=== PATIENT | female | born 1955 | race African-American/Black ===

== ENCOUNTER 2017-08-06 10:16 | Emergency (ER) | payer BC ==
[2017-08-06 10:32] VITALS: TEMP 98.2; BMI 24.1
--- NOTE | 2017-08-06 11:03 | PDOC ---
Attending Attestation - Resident Resident Name: Jacob Wright - ED Attending Attestation I have performed the following: I have examined & evaluated the patient, The case was reviewed & discussed with the resident, I agree w/resident's findings & plan, Exceptions are as noted - Medical Decision Making 08/06/17 11:03 I, Dr. Marge Casillas, DO, attest that this document has been prepared under my direction and personally reviewed by me in its entirety. I further attest, that it accurately reflects all work, treatment, procedures and medical decision -making performed by me. 08/06/17 11:13 a/p: 61yo female with sob w exertion and speaking -suspect more likely vocal cord dysfunction/tracheal stenosis worsening by dry heat and weather changes -will check labs, cxr -no wheezing -no stridor -will discuss with Dr. Johnson -will give humidified O2 <Marge Casillas - Last Filed: 08/06/17 11:13> - HPI HPI: 08/06/17 13:43 Pt is a 61 yo F with a PMHx of Hypothyroidism (s/p total thyroidectomy), Asthma , Tracheal stenosis who presents to the ED with worsening SOB since last night. Patient has tried multiple anson and turmeric teas with no relief. Patient reports she is unable to breath and is increasingly anxious due to this. Patient states SOB is worse at night and during the winter seasons. Patient also notes SOB is worse with conversation and exertion. Patient reports unexplained weight loss and hair loss over the past 3 months and presents to the ED for further evaluation. PCP: Dr. Roberto Carlos Cobos: Elizabeth - Physicial Exam PE: 08/06/17 13:43 GENERAL: Awake, alert, and fully oriented, in no acute distress HEAD: No signs of trauma. EYES: PERRLA, EOMI, sclera anicteric, conjunctiva clear ENT: Auricles normal inspection, hearing grossly normal, nares patent, oropharynx clear without exudates. Moist mucosa. NECK: +Transmitted upper airway sounds. No stridor. Normal ROM, supple, no lymphadenopathy, JVD, or masses LUNGS: Breath sounds equal, clear to auscultation bilaterally. No wheezes, and no crackles HEART: Regular rate and rhythm, normal S1 and S2, no murmurs, rubs or gallops ABDOMEN: Soft, nontender, normoactive bowel sounds. No guarding, no rebound. No masses EXTREMITIES: Normal range of motion, no edema. No clubbing or cyanosis. No cords, erythema, or tenderness NEUROLOGICAL: Cranial nerves II through XII grossly intact. Normal speech, normal gait SKIN: Warm, Dry, normal turgor, no rashes or lesions noted. - Medical Decision Making 08/06/17 13:43 Documentation prepared by Luma Gonzalez, acting as emergency medicine medical director for Marge Casillas DO <Luma Gonzalez - Last Filed: 08/06/17 13:43>
--- NOTE | 2017-08-06 11:04 | PDOC ---
History of Present Illness - General Chief Complaint: Shortness of Breath Stated Complaint: DIFFICULTY BREATHING Time Seen by Provider: 08/06/17 10:28 History Source: Patient Exam Limitations: No Limitations - History of Present Illness Initial Comments: 08/06/17 11:01 The patient is a 61F with a PMH of hypothyroidism (s/p total thyroidectomy at age 19, on levothyroxine) and newly diagnosed asthma who presents to the ED with difficulty breathing. The patient states that every year around this season she develops the same symptoms which include tightness in her throat and a feeling of difficulty breathing, associated with a frontal headache and sinus congestion when she sleeps. She states that she has traveled around the world looking for answers and "no one can figure out what she has". She states that she has had vocal cord scarring 2/2 to her surgery but sees an ENT for this. She has no other complaints. Past History - Past Medical History Allergies/Adverse Reactions: Allergies Allergy/AdvReac Type Severity Reaction Status Date / Time codeine Allergy Difficulty Verified 06/21/17 16:30 Breathing Penicillins Allergy Verified 06/21/17 16:30 Home Medications: Ambulatory Orders Cholecalciferol (Vitamin D3) [Vitamin D] 5,000 unit PO WEEKLY 04/25/13 Tobramycin 0.3% Ophth Soln [Tobrex Ophthalmic Solution -] 1 drop OD TID #0 bottle 09/11/13 Levothyroxine Sodium [Synthroid] 125 mcg PO DAILY tablet 12/15/14 Anemia: No Asthma: Yes Cancer: Yes (THYROID) Cardiac Disorders: No COPD: No GI Disorders: Yes (REFLUX) Hypercholesterolemia: Yes Thyroid Disease: Yes (HYPO) - Surgical History Abdominal Surgery: No Appendectomy: No Cardiac Surgery: No - Suicide/Smoking/Psychosocial Hx Smoking Status: No Smoking History: Never smoked Number of Cigarettes Smoked Daily: 0 Hx Alcohol Use: No Drug/Substance Use Hx: No Review of Systems - Review of Systems Able to Perform ROS?: Yes Comments:: 08/06/17 11:09 GENERAL/CONSTITUTIONAL: No fever or chills. No weakness. HEAD, EYES, EARS, NOSE AND THROAT: No change in vision. No ear pain or discharge. No sore throat. GASTROINTESTINAL: No nausea, vomiting, diarrhea, constipation, or abdominal pain. GENITOURINARY: No dysuria, frequency, hematuria, or change in urination. CARDIOVASCULAR: Positive for chest tightness. No chest pain, palpitations, or lightheadedness. RESPIRATORY: Positive for throat tightness. No cough, wheezing, or hemoptysis. MUSCULOSKELETAL: No joint or muscle swelling or pain. No neck or back pain. SKIN: No rash or lesions. NEUROLOGIC: No headache, numbness, tingling, weakness, loss of consciousness, or change in strength/sensation. ENDOCRINE: No increased thirst. No abnormal weight change. HEMATOLOGIC/LYMPHATIC: No anemia, easy bleeding, or history of blood clots. ALLERGIC/IMMUNOLOGIC: No hives or skin allergy. Is the patient limited Pakistani proficient: No *Physical Exam - Vital Signs Last Vital Signs Temp Pulse Resp BP Pulse Ox 98.2 F 75 18 137/96 100 08/06/17 10:27 08/06/17 10:48 08/06/17 10:48 08/06/17 10:48 08/06/17 10:48 - Physical Exam Comments: 08/06/17 11:10 GENERAL: Well developed, well nourished. Awake and alert. No acute distress. HEENT: Normocephalic, atraumatic. Hearing grossly normal. Moist mucous membranes. NECK: Supple. Full ROM. No JVD. CARDIOVASCULAR: Regular rate and rhythm. No murmurs, rubs, or gallops. Distal pulses are 2+ and symmetric. PULMONARY: Upper airway wheezing, none in lungs. No evidence of respiratory distress. Lungs clear to auscultation bilaterally. No rales or rhonchi. ABDOMINAL: Soft. Non-tender. Non-distended. No rebound or guarding. No organomegaly. Normoactive bowel sounds. GENITOURINARY: No CVA tenderness bilaterally. MUSCULOSKELETAL: Normal range of motion at all joints. No bony deformities or tenderness. EXTREMITIES: No cyanosis. No clubbing. No edema. No calf tenderness. SKIN: Warm and dry. Normal capillary refill. No rashes. No jaundice. NEUROLOGICAL: Alert, awake, appropriate. Cranial nerves 2-12 intact. Normal speech. PSYCHIATRIC: Cooperative. Good eye contact. Appropriate mood and affect. Heart Score/ECG Review #1 ECG reviewed & interpreted by me at: 11:11 General ECG Interpretation: Sinus Rhythm, Normal Rate, Normal Intervals, No acute ischemic changes Compared to previous ECG there are: No significant change 08/06/17 11:11 Rate 68 QRS 86 QTc 429 ED Treatment Course - LABORATORY CBC & Chemistry Diagram: 08/06/17 11:13 08/06/17 11:13 - RADIOLOGY Radiology Studies Ordered: Category Date Time Status CHEST PA & LAT [RAD] Stat Radiology 08/06/17 10:58 Ordered Medical Decision Making - Medical Decision Making 08/06/17 11:13 The patient is a 61F with a PMH of hypothyroidism s/p total thyroidectomy on synthroid and asthma who presents with upper airway difficulty breathing. On my differential is increased thyroid hormone, asthma exacerbation, ACS, and anxiety. I have sent labs and imaging and will give the patient humidified oxygen when she returns from imaging. This is likely 2/2 to dry air causing her tracheal stenosis 2/2 to her surgeries. Will assess after she gets humidified O2. 08/06/17 12:02 Labs WNL. Will try humidified O2 and reassess patient. 08/06/17 13:25 The patient states she feels much better on humidified O2 and will be discharged home with f/u with PCP and Dr. Johnson. *DC/Admit/Observation/Transfer Diagnosis at time of Disposition: Dry throat - Discharge Dispostion Disposition: HOME Condition at time of disposition: Improved Admit: No - Referrals Referrals: Hillary Azevedo MD [Primary Care Provider] - Andrés Johnson MD [Staff Physician] - - Patient Instructions Additional Instructions: Please use your humidifier as needed. You can also use nasal saline spray throughout the day and vaseline around your noise at night to keep it moist. Please return to the ER if symptoms persist, worsen, or new symptoms arise. Please follow up with your primary care physician in 2-3 days and follow up with Dr. Johnson. Please return to the ER if you have any signs or symptoms of chest pain, shortness of breath, uncontrollable fever, chills, nausea, vomiting, numbness, tingling, or weakness in any part of your body, changes in vision, or slurred speech. - Post Discharge Activity
[2017-08-06 11:31] LABS: BASO % 1.3 % (0-2.0); EOS % 2.2 % (0-4.5); MCH 26.6 pg (25.7-33.7); MEAN CELL VOLUME 83.1 fl (80-96); MEAN PLT VOLUME 8.2 fl (7.5-11.1); NEUT % 49.6 % (42.8-82.8); PLATELET COUNT 177 K/MM3 (134-434); RDW 12.9 % (11.6-15.6); WHITE BLOOD COUNT 2.9 K/mm3 (4.0-10.0)
[2017-08-06 11:50] LABS: ALBUMIN 3.9 g/dl (3.4-5.0); ANION GAP 9 (8-16); BILIRUBIN,TOTAL 0.6 mg/dL (0.2-1.0); CALCIUM 7.3 mg/dL (8.5-10.1); CO2 34 mmol/L (21-32); CREATININE 0.7 mg/dL (0.55-1.02); GLUCOSE,RANDOM 94 mg/dL (74-106); SGOT/AST 14 U/L (15-37); SGPT/ALT 22 U/L (12-78); TOT PROT 6.9 g/dl (6.4-8.2)
[2017-08-06 11:53] LABS: ALK PHOS 49 U/L (45-117); CPK 374 IU/L (26-192); TROPONIN I < 0.02 ng/ml (0.00-0.05)
[2017-08-06 11:57] LABS: FREE T4 1.13 ng/dl (0.76-1.46); THYROID STIMULATING HORMONE 3.11 uIU/ml (0.358-3.74)
[2017-08-06 13:38] VITALS: BP 129/90; PULSE 107
--- NOTE | 2017-08-06 21:26 | EKG ---
Test Reason : Blood Pressure : / mmHG Vent. Rate : 068 BPM Atrial Rate : 068 BPM P-R Int : 152 ms QRS Dur : 086 ms QT Int : 404 ms P-R-T Axes : 064 -58 -51 degrees QTc Int : 429 ms POOR DATA QUALITY, INTERPRETATION MAY BE ADVERSELY AFFECTED NORMAL SINUS RHYTHM LEFT ANTERIOR FASCICULAR BLOCK MODERATE VOLTAGE CRITERIA FOR LVH, MAY BE NORMAL VARIANT CANNOT RULE OUT SEPTAL INFARCT , AGE UNDETERMINED IINFEROLATERAL T WAVE ABNORMALITIES. ABNORMAL ECG WHEN COMPARED WITH ECG OF 12-DEC-2012 14:09, MINIMAL CRITERIA FOR SEPTAL INFARCT ARE NOW PRESENT INVERTED T WAVES HAVE REPLACED NONSPECIFIC T WAVE ABNORMALITY IN LATERAL LEADS Confirmed by MD JAYA, PRIMITIVO ([id number]) on 08/06/2017 9:26:33 PM Referred By: Confirmed By:PRIMITIVO LAKE MD
== END 2017-08-06 13:38 | disposition home or self-care (01) ==
LOC: JER 10:16
DX: J39.2 Other diseases of pharynx (principal); E03.9 Hypothyroidism, unspecified; J45.909 Unspecified asthma, uncomplicated; K21.9 Gastro-esophageal reflux disease without esophagitis
CPT/HCPCS: 36415; 71020-TC; 80053; 82550; 82553; 84439; 84443; 84484; 85025; 93005; 93010; 99284-25

== ENCOUNTER 2017-08-13 10:29 | Inpatient (IN) | payer BC ==
--- NOTE | 2017-08-13 11:33 | PDOC ---
History of Present Illness - General History Source: Patient Exam Limitations: No Limitations - History of Present Illness Initial Comments: 08/13/17 11:52 The patient is a 61 year old female with a significant PMH of hypothyroidism (s/ p total thyroidectomy at age 19, on levothyroxine) and asthma who presents to the emergency department with difficulty breathing for the past 6 days. The patient states she becomes significantly short of breath every year around the Winter time since 2010. The patient complains of an associated sharp chest pain secondary to coughing and being unable to clear her throat. The patient follows up regularly with her ENT and her pulp roller, Dr. Johnson, who told her the vocal cords were severed and her throat is narrow making it difficult for her to breathe. The patient states her shortness of breath is worse at night and also experiences associated frontal headaches. The patient has gone to multiple hospitals in the past for evaluation with no improvement. The patient denies dizziness. Denies fever, chills, nausea, vomit, diarrhea and constipation. Denies dysuria, frequency, urgency and hematuria. Allergies: NKA Past surgical history: thyroidectomy Social history: No reported alcohol, cigarette, or drug use. PCP: Dr. Azevedo Apparatus Lineman: Dr. Johnson <Ramonita Matamoros - Last Filed: 08/13/17 11:52> <Kiley Arenas - Last Filed: 08/13/17 15:32> - General Chief Complaint: Shortness of Breath Stated Complaint: SHORTNESS OF BREATH Time Seen by Provider: 08/13/17 11:13 Past History <Ramonita Matamoros - Last Filed: 08/13/17 11:52> - Past Medical History Anemia: No Asthma: Yes Cancer: Yes (THYROID) Cardiac Disorders: No COPD: No DVT: No GI Disorders: Yes (REFLUX) Hypercholesterolemia: Yes Thyroid Disease: Yes (HYPO) - Surgical History Abdominal Surgery: No Appendectomy: No Cardiac Surgery: No - Suicide/Smoking/Psychosocial Hx Smoking Status: No Smoking History: Never smoked Number of Cigarettes Smoked Daily: 0 Information on smoking cessation initiated: No Hx Alcohol Use: No Drug/Substance Use Hx: No Substance Use Type: None <Kiley Arenas - Last Filed: 08/13/17 15:32> - Past Medical History Allergies/Adverse Reactions: Allergies Allergy/AdvReac Type Severity Reaction Status Date / Time codeine Allergy Difficulty Verified 08/13/17 10:34 Breathing Penicillins Allergy Verified 08/13/17 10:34 Home Medications: Ambulatory Orders Cholecalciferol (Vitamin D3) [Vitamin D] 5,000 unit PO WEEKLY 04/25/13 Tobramycin 0.3% Ophth Soln [Tobrex Ophthalmic Solution -] 1 drop OD TID #0 bottle 09/11/13 Levothyroxine Sodium [Synthroid] 125 mcg PO DAILY tablet 12/15/14 Albuterol 0.083% Nebulizer Jaida [Ventolin 0.083%] 1 neb NEB QID 08/13/17 Ipratropium [place] [Atrovent Hfa] 12.9 gm IH PRN 08/13/17 Review of Systems - Review of Systems Able to Perform ROS?: Yes Comments:: 08/13/17 11:53 GENERAL/CONSTITUTIONAL: No fever or chills. HEAD, EYES, EARS, NOSE AND THROAT: No change in vision. No ear pain or discharge. No sore throat. CARDIOVASCULAR: (+) Chest pain. (+) Shortness of breath. RESPIRATORY: (+) Cough. No wheezing, or hemoptysis. GASTROINTESTINAL: No nausea, vomiting, diarrhea or constipation. GENITOURINARY: No dysuria, frequency, or change in urination. MUSCULOSKELETAL: No joint or muscle swelling or pain. No neck or back pain. SKIN: No rash NEUROLOGIC: (+) Headache. No vertigo, loss of consciousness, or change in strength/sensation. ENDOCRINE: No increased thirst. No abnormal weight change. HEMATOLOGIC/LYMPHATIC: No anemia, easy bleeding, or history of blood clots. ALLERGIC/IMMUNOLOGIC: No hives or skin allergy. <Ramonita Matamoros - Last Filed: 08/13/17 11:52> *Physical Exam - Vital Signs Last Vital Signs Temp Pulse Resp BP Pulse Ox 97.6 F 66 18 132/84 97 08/13/17 10:34 08/13/17 10:34 08/13/17 10:34 08/13/17 10:34 08/13/17 10:45 <Ramonita Matamoros - Last Filed: 08/13/17 11:52> - Vital Signs Last Vital Signs Temp Pulse Resp BP Pulse Ox 97.6 F 66 18 132/84 97 08/13/17 10:34 08/13/17 10:34 08/13/17 10:34 08/13/17 10:34 08/13/17 10:45 - Physical Exam Comments: GENERAL: Awake, alert, and fully oriented, in no acute distress HEAD: No signs of trauma EYES: PERRLA, EOMI, sclera anicteric, conjunctiva clear ENT: Auricles normal inspection, hearing grossly normal, nares patent, oropharynx clear without exudates. Dry mucosa. Voice is hoarse, high-pitched. NECK: Normal ROM, supple, no lymphadenopathy, JVD, or masses LUNGS: Breath sounds equal, clear to auscultation bilaterally. No wheezes, and no crackles HEART: Regular rate and rhythm, normal S1 and S2, no murmurs, rubs or gallops ABDOMEN: Soft, nontender, normoactive bowel sounds. No guarding, no rebound. No masses EXTREMITIES: Normal range of motion, no edema. No clubbing or cyanosis. No cords, erythema, or tenderness NEUROLOGICAL: Cranial nerves II through XII grossly intact. Normal gait. SKIN: Warm, Dry, normal turgor, no rashes or lesions noted. <Kiley Arenas - Last Filed: 08/13/17 15:32> ED Treatment Course - LABORATORY CBC & Chemistry Diagram: 08/13/17 11:57 08/13/17 13:11 <Kiley Arenas - Last Filed: 08/13/17 15:32> Medical Decision Making - Medical Decision Making 08/13/17 11:49 Case d/w Dr. Johnson. I will change decadron to solu-medrol as per his recommendation. He will evaluate patient. I will plan for admission, as she is worse from prior visit. I have also discussed with respiratory to get her humidified oxygen. <Kiley Arenas - Last Filed: 08/13/17 15:32> *DC/Admit/Observation/Transfer - Attestations Scribe Attestion: 08/13/17 11:54 Documentation prepared by Ramonita Matamoros, acting as medical collector for Kiley Arenas MD. <Ramonita Matamoros - Last Filed: 08/13/17 11:52> - Discharge Dispostion Admit: Yes <Kiley Arenas Filed: 08/13/17 15:32> Diagnosis at time of Disposition: Vocal cord anomaly, Dry throat Asthmatic bronchitis Qualifiers: Asthma severity: unspecified severity Asthma persistence: unspecified Asthma complication type: with acute exacerbation Qualified Code(s): J45.901 - Unspecified asthma with (acute) exacerbation - Discharge Dispostion Condition at time of disposition: Stable - Referrals Referrals: Hillary Azevedo MD [Primary Care Provider] - - Patient Instructions - Post Discharge Activity
[2017-08-13] MEDS ORDERED: SODIUM CHLORIDE 1,000 ML IV STA (11:34)
[2017-08-13] MEDS ORDERED: DEXAMETHASONE SOD PHOSPHATE 10 MG/1 ML VIAL IVPUSH ONE (11:34)
[2017-08-13] MEDS ORDERED: methylPREDNISolone NA SUCC 125 MG/2 ML VIAL IVPB ONE (11:42)
[2017-08-13] MEDS ORDERED: DEXAMETHASONE SOD PHOSPHATE 10 MG/1 ML VIAL ONE (12:00)
[2017-08-13] MEDS ORDERED: methylPREDNISolone NA SUCC 125 MG/2 ML VIAL ONE (12:01)
[2017-08-13] MEDS ORDERED: SODIUM CHLORIDE 2,000 ML IV STA (12:34)
[2017-08-13 12:42] LABS: MCH 26.4 pg (25.7-33.7); MCHC 31.7 g/dl (32.0-36.0); MEAN CELL VOLUME 83.1 fl (80-96); MEAN PLT VOLUME 9.4 fl (7.5-11.1); PLATELET COUNT 177 K/MM3 (134-434); RDW 13.4 % (11.6-15.6); WHITE BLOOD COUNT 2.5 K/mm3 (4.0-10.0)
--- NOTE | 2017-08-13 13:05 | EKG ---
Test Reason : Blood Pressure : / mmHG Vent. Rate : 128 BPM Atrial Rate : 128 BPM P-R Int : 200 ms QRS Dur : 086 ms QT Int : 322 ms P-R-T Axes : 000 -67 138 degrees QTc Int : 470 ms SINUS TACHYCARDIA LEFT ANTERIOR FASCICULAR BLOCK MINIMAL VOLTAGE CRITERIA FOR LVH, MAY BE NORMAL VARIANT SEPTAL INFARCT (CITED ON OR BEFORE 06-AUG-2017) ABNORMAL ECG WHEN COMPARED WITH ECG OF 06-AUG-2017 10:31, VENT. RATE HAS INCREASED BY 60 BPM QUESTIONABLE CHANGE IN INITIAL FORCES OF SEPTAL LEADS T WAVE INVERSION NO LONGER EVIDENT IN INFERIOR LEADS T WAVE INVERSION NO LONGER EVIDENT IN LATERAL LEADS Confirmed by MD Nelson, Carlos ([id number]) on 08/13/2017 1:05:10 PM Referred By: Confirmed By:Carlos Damon MD
[2017-08-13 13:31] LABS: ACANTHOCYTES 0; ANISOCYTOSIS 0; BASOPHIL %. 2.1 % (0-2.0); BURR CELLS 0; CABBOT RINGS 0; HELMET CELLS 0; HOWELL-JOLLY BODIES 0; HYPOCHROMIA 0; MACROCYTOSIS 0; METAMYELOCYTE 1 % (0-2); MICROCYTOSIS 0; MYELOCYTE 1 % (0-2); OVALOCYTE 0; PLATELET ESTIMATE NORMAL; POIKILOCYTOSIS 0; POLYCHROMASIA 0; REACTIVE LYMPHOCYTES 7 % (0-80); SCHISTOCYTES 0; SPHEROCYTE 0; STOMATOCYTE 0; TARGET CELLS 0; TEAR DROP CELLS 0; TOXIC GRANULATION 0
[2017-08-13 13:50] LABS: TOTAL CELLS COUNTED 100
[2017-08-13 14:53] LABS: ALBUMIN 3.8 g/dl (3.4-5.0); ALK PHOS 59 U/L (45-117); ANION GAP 8 (8-16); BILIRUBIN,TOTAL 0.6 mg/dL (0.2-1.0); CALCIUM 7.3 mg/dL (8.5-10.1); CO2 33 mmol/L (21-32); CREATININE 0.7 mg/dL (0.55-1.02); GLUCOSE,RANDOM 99 mg/dL (74-106); SGOT/AST 12 U/L (15-37); SGPT/ALT 21 U/L (12-78); TOT PROT 6.9 g/dl (6.4-8.2)
--- NOTE | 2017-08-13 15:17 | PN ---
Progress Note (short form) - Note Progress Note: PULMONARY CONSULTATION DICTATED 08/13/17 IMP ACUTE RESPIRATORY DISTRESS SECONDARY TO UPPER AIRWAY PATHOLOGY ? 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
[2017-08-13] MEDS ORDERED: methylPREDNISolone NA SUCC 40 MG/1 ML VIAL IVPB SCH (15:30)
--- NOTE | 2017-08-13 15:50 | CONS ---
PULMONARY CONSULTATION DATE OF CONSULTATION: 08/13/2017 REFERRING PHYSICIAN: Kiley Arenas MD HISTORY OF PRESENT ILLNESS: The patient is a 61-year-old black female known to me from previous hospitalization follow past medical history of hypothyroidism status post total thyroidectomy with subsequent severed vocal cords, history of questionable asthma, who is a nonsmoker, admitted to [facility], complained of increasing shortness of breath. patient states that for the past week or so she started noticing increasing shortness of breath associated with sharp chest pain and also complaining of cough which was nonproductive. She is followed by ENT and is told her vocal cords are getting narrower, causing her to have increasing shortness of breath. Apparently, she is being considered for possible surgery. Patient denies hemoptysis. Denies any fevers or chills. Denies nausea, vomiting, or diaphoresis. States her shortness of breath is worse at night. Denies any fevers or chills. Denies any recent URI symptoms. PAST MEDICAL HISTORY: Again includes hypothyroidism status post thyroidectomy, history of severed vocal cords, and questionable asthma. MEDICATIONS PRIOR TO ADMISSION: Include vitamin D3, Synthroid, albuterol, and Atrovent. REVIEW OF SYSTEMS: Positive shortness of breath. Positive cough. Positive chest pain. Positive tachycardia. No abdominal pain. No nausea. No vomiting. No lower extremity edema. CURRENT MEDICATIONS: Include none. PHYSICAL EXAMINATION: General: The patient is a well-developed, well-nourished female, awake, alert, currently in no acute distress. Vital Signs: She is currently afebrile. Blood pressure is 145/90, respiratory rate is 18, heart rate is 115 and regular. HEENT: Normocephalic, atraumatic. Neck: Supple. There is stridorous, decreased upper airway breath sounds. Heart: Tachycardic with normal S1, S2. Chest: Transient bilateral upper airway breath sounds. Abdomen: Soft. Bowel sounds are positive. Extremities: No signs of edema. LABORATORY DATA: WBC is 2.5, hemoglobin 11.3, hematocrit 35.7, a platelet count of 177,000. INR is 1.21. BUN is 6, creatinine 0.7. Chest x-ray: No infiltrates. No effusions. IMPRESSION: 1. Respiratory distress, most likely secondary to upper airway pathology with history of severed vocal cords. 2. History of hypothyroidism. 3. Tachycardia. PLAN: Steroids, ENT evaluation, supplemental O2, inhaled bronchodilators [id number] [id number]
[2017-08-13 19:56] VITALS: BMI 22.9
[2017-08-13] MEDS ORDERED: IPRATROPIUM BR 0.02% 0.5 MG/2.5 ML VIAL.NEB. NEB PRN (21:00)
[2017-08-13] MEDS ORDERED: ACETAMINOPHEN 325 MG TABLET (FP) PO PRN (21:00)
[2017-08-13] MEDS ORDERED: ALBUTEROL SO4 0.083% IH SOL 2.5 MG/3 ML VIAL.NEB. NEB PRN (21:00)
[2017-08-13] MEDS: methylPREDNISolone NA SUCC 40 MG/1 ML VIAL IVPB SCH (21:26)
[2017-08-14] MEDS: methylPREDNISolone NA SUCC 40 MG/1 ML VIAL IVPB SCH ×3 (02:12→18:41)
[2017-08-14] MEDS: LEVOTHYROXINE NA 125 MCG TABLET (FP) PO SCH (06:17)
--- NOTE | 2017-08-14 08:51 | HP ---
DATE OF ADMISSION: 08/13/2017 This is a 61-year-old female well known to me, came to the emergency room with difficulty in breathing. She is diagnosed to have hypothyroidism, status post total thyroidectomy and radiation to the neck. Subsequently she developed a constriction of the neck muscles and started having stricture of larynx. 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 She is having some history of bronchial asthma. She is not a smoker. Last admission was to [facility] in April. She does not have any hemoptysis, not coughing. This morning the patient is feeling better. She can swallow. She can breathe properly. At present, she takes Synthroid and albuterol p.r.n. PHYSICAL EXAMINATION: Vital Signs: Her BP is 130/80, pulse 72, respirations 20, temperature 98. Head: Atraumatic. Eyes: PERRLA. Neck: Stricture all around. Lungs: Clear. Minimal wheezing sound. Heart: S1, S2 normal. No S3 or S4. Abdomen: Soft, nontender. Extremities: No edema. LABORATORY DATA: WBC 2.5, hemoglobin 11.3, hematocrit 35, platelets 177. Chemistries: Sodium 139, potassium 3.6, blood sugar 99. X-ray of the larynx: Minimal constriction noted around the larynx. Chest x-ray not done. 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 PLAN: IV steroids, IV antibiotics and pulmonary consult. BETTE CASTILLO M.D. [id number]
[2017-08-14] MEDS ORDERED: LACTOBACILLUS ACIDOPHILUS 1 EACH TAB (FP) PO SCH (10:00)
[2017-08-14] MEDS ORDERED: ALBUTEROL SO4 0.083% IH SOL 2.5 MG/3 ML VIAL.NEB. NEB PRN (11:07)
--- NOTE | 2017-08-14 11:14 | PN ---
Progress Note (short form) - Note Progress Note: PULMONARY SUBJECTIVE IMPROVEMENT VSS/AFEBRILE ANICTERIC SCATTERED EXP WHEEZE S1S2 BS+ NO EDEMA LABS/MEDS/NOTES/IMAGES REVIEWED IMP ACUTE RESPIRATORY DISTRESS SECONDARY TO UPPER AIRWAY PATHOLOGY ? H/O ASTHMA HYPOTHYROID S/P THYROIDECTOMY TACHYCARDIA PLAN IV STEROIDS/BRONCHODILATORS O2/PRN ENT EVALUATION INFLU SWAB/CXR Ana TAPIA MD
[2017-08-14] MEDS ORDERED: ALBUTEROL SO4 2.5/IPRATROPIUM 0.5 INH SOL 3 ML VIAL.NEB. NEB SCH (11:15)
[2017-08-14] MEDS: ALBUTEROL SO4 2.5/IPRATROPIUM 0.5 INH SOL 3 ML VIAL.NEB. NEB SCH ×2 (12:20→17:22)
--- NOTE | 2017-08-14 12:22 | CON.ENT ---
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 She was evaluate as recently as last week. She had trouble breathing with chest pain which brought her into [facility]. She is feeling better since treatment with IV steroids. She denies trouble swallowing, throat pain or respiratory distress currently - History Source History Provided By: Patient Limitations to Obtaining History: No Limitations - Past Medical History ...: No ENT: Yes: Other ( VC paresis/webbing, nasal polyps) - Past Surgical History Additional Surgical History: Thyroidectomy, laryngeal surgery, nasal polypectomy - Alcohol/Substance Use Hx Alcohol Use: No - Smoking History Smoking history: Never smoked Aproximately how many cigarettes per day: 0 Home Medications - Allergies Allergies/Adverse Reactions: Allergies Allergy/AdvReac Type Severity Reaction Status Date / Time codeine Allergy Difficulty Verified 08/13/17 10:34 Breathing Penicillins Allergy Verified 08/13/17 10:34 - Home Medications Home Medications: Ambulatory Orders Cholecalciferol (Vitamin D3) [Vitamin D] 5,000 unit PO WEEKLY 04/25/13 Levothyroxine Sodium [Synthroid] 125 mcg PO DAILY tablet 12/15/14 Albuterol 0.083% Nebulizer Jaida [Ventolin 0.083%] 1 neb NEB QID 08/13/17 Ipratropium [place] [Atrovent Hfa] 12.9 gm IH PRN 08/13/17 Review of Systems - Review of Systems Constitutional: reports: No Symptoms Eyes: reports: No Symptoms HENT: reports: Nasal Congestion Neck: reports: Other (hoarseness) Respiratory: reports: SOB on Exertion Physical Exam-ENT Vital Signs: Vital Signs Temperature 98.0 F 08/14/17 08:56 Pulse Rate 73 08/14/17 08:56 Respiratory Rate 18 08/14/17 08:56 Blood Pressure 88/54 08/14/17 08:56 O2 Sat by Pulse Oximetry (%) 93 L 08/14/17 09:00 Constitutional: Yes: Well Nourished, No Distress Head: Yes: WNL Face: Yes: Symmetrical Eyes: Yes: WNL Nose: Yes: WNL, Pale Nasal Passage: Yes: Pale Oral/Pharynx: Yes: WNL Outer Ear: Yes: WNL Ear Canal: Yes: WNL Neck: Yes: WNL Respiratory: Yes: Stridor Neurological: Yes: Alert, Oriented Imaging - Results X-ray: Report Reviewed Problem List - Problems (1) Bilateral vocal cord paresis Assessment/Plan: Pt with hx of bilateral VC paresis after thyroidectomy, closely followed by [facility] Dr Joshua Dumont to whom she is scheduled to follow up with for further laryngeal surgery to improve her airway. She is currently stable, back to her baseline. She will follow-up with him upon discharge. Code(s): J38.02 - PARALYSIS OF VOCAL CORDS AND LARYNX, BILATERAL Procedure Note Procedure: FIBEROPTIC LARYNGOSCOPY After obtaining verbal consent from the patient, topical decong/anesthesia was sprayed intranasally. Flexible scope was passed, no nasal pathology was noted. Nasopharyn and oropharynx were clear. Bilateral VC paresis in paramedian position noted with small glottic chink. No lesions or edema noted.
[2017-08-14] MEDS ORDERED: guaiFENesin 200 MG/10 ML 10 ML UNIT-DOSE CUPS PO PRN (21:08)
[2017-08-14] MEDS ORDERED: MONTELUKAST NA 10 MG TABLET PO SCH (22:00)
[2017-08-15] MEDS: methylPREDNISolone NA SUCC 40 MG/1 ML VIAL IVPB SCH ×2 (01:17→01:35)
[2017-08-15] MEDS: LEVOTHYROXINE NA 125 MCG TABLET (FP) PO SCH (06:29)
[2017-08-15] MEDS: ALBUTEROL SO4 2.5/IPRATROPIUM 0.5 INH SOL 3 ML VIAL.NEB. NEB SCH ×2 (06:30)
--- NOTE | 2017-08-15 08:34 | DS ---
Physical Examination Vital Signs: Vital Signs Temperature 98 F 08/15/17 05:51 Pulse Rate 71 08/15/17 05:51 Respiratory Rate 20 08/15/17 05:51 Blood Pressure 104/71 08/15/17 05:51 O2 Sat by Pulse Oximetry (%) 97 08/14/17 20:18 Findings/Remarks: Admitted with asthma and strider ENT consult reported vocal cord paresis Wheezing improved Constitutional: Yes: No Distress Eyes: Yes: WNL HENT: Yes: WNL Neck: Yes: WNL Cardiovascular: Yes: WNL Respiratory: Yes: WNL Gastrointestinal: Yes: WNL ...Rectal Exam: Yes: Deferred Renal/: Yes: WNL Edema: No Neurological: Yes: Alert Labs: CBC, BMP 08/13/17 11:57 08/13/17 13:11 Discharge Summary Reason For Visit: ASTHMATIC BRONCHITIS,PHARYNGEAL DRYNESS,VOCAL CORD Current Active Problems Asthmatic bronchitis (Acute) Bilateral vocal cord paresis (Acute) Dry throat (Acute) Hypothyroid (Acute) Vocal cord anomaly (Acute) Condition: Stable - Instructions Referrals: Hillary Azevedo MD [Primary Care Provider] - - Home Medications Comprehensive Discharge Medication List: Ambulatory Orders Cholecalciferol (Vitamin D3) [Vitamin D] 5,000 unit PO WEEKLY 04/25/13 Levothyroxine Sodium [Synthroid] 125 mcg PO DAILY tablet 12/15/14 Albuterol 0.083% Nebulizer Jaida [Ventolin 0.083%] 1 neb NEB QID 08/13/17 Ipratropium [place] [Atrovent Hfa] 12.9 gm IH PRN 08/13/17
[2017-08-15 09:14] VITALS: BP 108/62; PULSE 74; TEMP 98.9
[2017-08-20] MEDS ORDERED: CHOLECALCIFEROL (VITAMIN D3) 1,000 UNIT TABLET (FP) PO SCH (10:00)
== END 2017-08-15 10:02 | disposition home or self-care (01) | DRG 155 ==
LOC: JER 10:29 → JERBED 15:32 → J7W 17:53
PROVIDERS: ADMIT Internal Medicine; ATTEND Internal Medicine
PROC: 0CJS8ZZ Inspection of Larynx, Via Natural or Artificial Opening Endoscopic (ICD-10-PCS; principal; 2017-08-14)
DX: J38.02 Paralysis of vocal cords and larynx, bilateral (principal); Q31.8 Other congenital malformations of larynx; E03.9 Hypothyroidism, unspecified; K21.9 Gastro-esophageal reflux disease without esophagitis; E78.00 Pure hypercholesterolemia, unspecified; J39.2 Other diseases of pharynx; R00.0 Tachycardia, unspecified; J33.8 Other polyp of sinus; J45.909 Unspecified asthma, uncomplicated
CPT/HCPCS: 36415; 70360-TC; 80053; 85025; 87804; 93005; 93010; 94150; 94640; 99285-25

== ENCOUNTER 2017-09-26 15:48 | Emergency (ER) | payer BC ==
[2017-09-26 15:55] VITALS: BMI 17.4
[2017-09-26] MEDS ORDERED: ACETAMINOPHEN 325 MG TABLET (FP) PO ONE (15:59)
--- NOTE | 2017-09-26 15:59 | PDOC ---
Rapid Medical Evaluation Time Seen by Provider: 09/26/17 15:54 Medical Evaluation: Allergies Allergy/AdvReac Type Severity Reaction Status Date / Time codeine Allergy Difficulty Verified 08/13/17 10:34 Breathing Penicillins Allergy Verified 08/13/17 10:34 09/26/17 15:54 pt c/o: cough x 2 days, chills, now coughing up blood streaked sputum Pt on exam: hr 131, oral temp 99.1, hoarse voice Pt ordered for: influenza and acetaminophen Pt to proceed to the ED Discharge Disposition - Diagnosis Hemoptysis - Referrals - Patient Instructions - Post Discharge Activity
--- NOTE | 2017-09-26 17:17 | PDOC ---
Attending Attestation - HPI HPI: 09/26/17 17:45 The patient is a 61 year old female with a significant PMH of hypothyroidism (s/ p total thyroidectomy at age 19, on levothyroxine), vocal cord dysfunction, and asthma who presents to the emergency department with generalized body aches, fevers, chills, and productive cough of yellow sputum that began two days ago. The patient denies getting her flu shot this year. - Physicial Exam PE: 09/26/17 17:44 Constitutional: (+) Coarse voice. Awake, alert, oriented. No acute distress. Head: Normocephalic. Atraumatic Eyes: PERRL. EOMI. Conjunctivae are not pale. ENT: Mucous membranes are moist and intact. Posterior pharynx without exudates or erythema. Uvula midline. Neck: Supple. Full ROM. No lymphadenopathy. Cardiovascular: Regular rate. Regular rhythm. S1, S2 regular. Distal pulses are 2+ and symmetric. Pulmonary/Chest: No stridor. No evidence of respiratory distress. Clear to auscultation bilaterally No wheezing, rales or rhonchi. Abdominal: Soft and non-distended. There is no tenderness. No rebound, guarding or rigidity. No organomegaly. No palpable masses. Good bowel sounds. Back: No CVA tenderness. Musculoskeletal: No edema. No cyanosis. No clubbing. Full range of motion in all extremities. Nocalf tenderness. Radial/pedal pulses are intact and 2+ bilaterally Skin: Skin is warm and dry. No petechiae. No purpura. Neurological: Alert and oriented to person, place, and time. Cranial nerves II -XII are grossly intact. Normal speech. Strength is grossly symmetric. No sensory deficits. Psychiatric: Good eye contact. Normal interaction, affect and behavior. <Ramonita Matamoros - Last Filed: 09/26/17 18:08> - Resident Resident Name: Bayron Cruz - ED Attending Attestation I have performed the following: I have examined & evaluated the patient, The case was reviewed & discussed with the resident, I agree w/resident's findings & plan, Exceptions are as noted - Medical Decision Making 09/26/17 17:17 I, Dr. Marge Casillas, DO, attest that this document has been prepared under my direction and personally reviewed by me in its entirety. I further attest, that it accurately reflects all work, treatment, procedures and medical decision -making performed by me. 09/26/17 19:30 62yo female with cough - productive yellow sputum slight fever at home nontoxic in appearance will check flu, cxr will give po intake will monitor and reassess 09/26/17 19:34 flu negative hydrating with PO intake 09/26/17 21:08 re-eval: pt feeling much better hr 72 tolerated po will start abx for mucopurulent bronchitis no pna on cxr stable for d/c to home ambulatory with a steady gait in the ED <Marge Casillas - Last Filed: 09/26/17 21:11> Discharge Disposition - Discharge Dispostion Last Admission D/C Date: 08/15/17 Admit: No <Marge Casillas - Last Filed: 09/26/17 21:11> - Diagnosis Acute bronchitis Qualifiers: Bronchitis organism: unspecified organism Qualified Code(s): J20.9 - Acute bronchitis, unspecified - Discharge Dispostion Disposition: HOME Condition at time of disposition: Stable - Prescriptions Prescriptions: Azithromycin [Zithromax Tri-Colt (3 DAYS) -] 500 mg PO DAILY #5 tablet - Referrals Referrals: Hillary Azevedo MD [Staff Physician] - 1 week - Patient Instructions Printed Discharge Instructions: DI for Acute Bronchitis Additional Instructions: You were in the ER for fevers, body aches, and cough. We believe you have a bronchitsis. Please take supportive measures such as keeping hydrated, staying warm. Please take your antibiotics that were sent to your pharmacy - Post Discharge Activity
--- NOTE | 2017-09-26 17:25 | PDOC ---
History of Present Illness - History of Present Illness Initial Comments: Ms Renee is a 62yo F with a PMHx of total thyroidectomy over 40 yrs ago with subsequent hypothyroidism and vocal cord dysfunction. She presented to the ER with 2 days of generalized body aches, fevers, chills, and productive cough. She was coughing all day yesterday productive with yellow sputum. Today, her sputum is mixed with blood. She has no risk factors for PE. She has a ?history of asthma but denies wheezing and increased use of her inhalers. 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 She denies any new chest pain. <Bayron Cruz - Last Filed: 09/26/17 19:05> <Marge Casillas - Last Filed: 09/26/17 21:16> - General Chief Complaint: Respiratory Stated Complaint: COUGHING BLOOD Time Seen by Provider: 09/26/17 15:54 Past History - Past Medical History Anemia: No Asthma: Yes Cancer: Yes (THYROID) Cardiac Disorders: No COPD: No DVT: No GI Disorders: Yes (REFLUX) Hypercholesterolemia: Yes Thyroid Disease: Yes (HYPO) - Surgical History Abdominal Surgery: No Appendectomy: No Cardiac Surgery: No - Suicide/Smoking/Psychosocial Hx Smoking Status: No Smoking History: Never smoked Number of Cigarettes Smoked Daily: 0 Cigars Per Day: 0 Hx Alcohol Use: No Drug/Substance Use Hx: No Substance Use Type: None Hx Substance Use Treatment: No <Bayron Cruz - Last Filed: 09/26/17 19:05> <Marge Casillas - Last Filed: 09/26/17 21:16> - Past Medical History Allergies/Adverse Reactions: Allergies Allergy/AdvReac Type Severity Reaction Status Date / Time codeine Allergy Difficulty Verified 08/13/17 10:34 Breathing Penicillins Allergy Verified 08/13/17 10:34 Home Medications: Ambulatory Orders Cholecalciferol (Vitamin D3) [Vitamin D] 5,000 unit PO WEEKLY 04/25/13 Albuterol 0.083% Nebulizer Jaida [Ventolin 0.083% Nebulizer Soln -] 1 neb NEB QID 08/13/17 Ipratropium [place] [Atrovent Hfa] 12.9 gm IH PRN 08/13/17 Acetaminophen [Tylenol .Regular Strength -] 650 mg PO Q6H PRN tablet 08/15/17 Albuterol 2.5/Ipratropium 0.5 [Duoneb -] 1 amp NEB Q4HWA amp 08/15/17 Albuterol 2.5/Ipratropium 0.5 [Duoneb -] 1 amp NEB QIDR amp 08/15/17 Levothyroxine [Synthroid -] 125 mcg PO DAILY@0700 tablet 08/15/17 Azithromycin [Zithromax 250mg Tablets -] 250 mg PO UTDICT #6 tab 09/26/17 Azithromycin [Zithromax Tri-Colt (3 DAYS) -] 500 mg PO DAILY #5 tablet 09/26/17 Review of Systems - Review of Systems Able to Perform ROS?: Yes Constitutional: Yes: Chills, Fever. No: Diaphoresis, Loss of Appetite, Malaise HEENTM: No: Eye Pain Respiratory: Yes: Cough. No: Orthopnea, Shortness of Breath Cardiac (ROS): No: Chest Pain, Edema, Irregular Heart Rate ABD/GI: No: Abdominal Distended, Constipated, Diarrhea : No: Burning, Dysuria, Discharge Musculoskeletal: No: Back Pain, Gout, Joint Pain Integumentary: No: Bruising, Pallor, Rash Neurological: No: Headache, Numbness, Paresthesia Psychiatric: No: Anxiety, Depression, Frequent Crying Endocrine: No: Excessive Sweating, Flushing, Intolerance to Cold Hematologic/Lymphatic: No: Anemia, Blood Clots, Easy Bleeding <Bayron Cruz - Last Filed: 09/26/17 19:05> *Physical Exam - Vital Signs Last Vital Signs Temp Pulse Resp BP Pulse Ox 99.1 F 138 H 16 121/69 97 09/26/17 15:51 09/26/17 15:51 09/26/17 15:51 09/26/17 15:51 09/26/17 15:51 - Physical Exam Comments: GEN: AAOx3, NAD, hoarse voice heard HEENT: PERRLA, EOMi CV: S1, S2, RRR LUNG: CTABL ABD: Soft, NT, ND, Normoactive BS MSK: No edema, no erythema NEURO: CN 2-12 intact <Bayron Cruz - Last Filed: 09/26/17 19:05> - Vital Signs Last Vital Signs Temp Pulse Resp BP Pulse Ox 99 F 81 18 92/57 97 09/26/17 19:04 09/26/17 19:04 09/26/17 19:04 09/26/17 21:06 09/26/17 19:04 <Marge Casillas - Last Filed: 09/26/17 21:16> ED Treatment Course - Medications Given in the ED: ED Medications Discontinued Medications Generic Name Dose Route Start Last Admin Trade Name Freq PRN Reason Stop Dose Admin Acetaminophen 650 mg 09/26/17 15:59 09/26/17 16:15 Tylenol - PO 09/26/17 16:00 650 mg ONCE ONE Administration <Bayron Cruz - Last Filed: 09/26/17 19:05> - ADDITIONAL ORDERS Additional order review: 09/26/17 16:16 Influenza Types A,B Antigen ([facility]ILLARD) - Final Nasopharyngeal Swab - Final - Medications Given in the ED: ED Medications Discontinued Medications Generic Name Dose Route Start Last Admin Trade Name Freq PRN Reason Stop Dose Admin Acetaminophen 650 mg 09/26/17 15:59 09/26/17 16:15 Tylenol - PO 09/26/17 16:00 650 mg ONCE ONE Administration Azithromycin 500 mg 09/26/17 20:12 09/26/17 20:33 Zithromax - PO 09/26/17 20:13 500 mg ONCE ONE Administration <Marge Casillas - Last Filed: 09/26/17 21:16> Medical Decision Making - Medical Decision Making 62yo F with a PMHx of total thyroidectomy with subsequent vocal cord dysfunction and hypothyroidism who presents with 2 days of bodyaches, fevers, chills, productive cough with blood streaked sputum after multiple episodes of coughing. 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 I suspect this is a viral upper respiratory infection. I suspect the mild hemoptysis is simply from coughin and mucosal tearing. I do not suspect PE. This could also be an acute bronchitis. -- CXR -- Flu She regularly follows with ENT. Likely dispo home w/ ENT followup <Bayron Cruz - Last Filed: 09/26/17 19:05> *DC/Admit/Observation/Transfer - Discharge Dispostion Admit: No <Bayron Cruz - Last Filed: 09/26/17 19:05> <ZaynabMarge caldwell - Last Filed: 09/26/17 21:16> Diagnosis at time of Disposition: Acute bronchitis Qualifiers: Bronchitis organism: unspecified organism Qualified Code(s): J20.9 - Acute bronchitis, unspecified - Discharge Dispostion Disposition: HOME Condition at time of disposition: Stable - Prescriptions Prescriptions: Azithromycin [Zithromax 250mg Tablets -] 250 mg PO UTDICT #6 tab Azithromycin [Zithromax Tri-Colt (3 DAYS) -] 500 mg PO DAILY #5 tablet - Referrals Referrals: Hillary Azevedo MD [Staff Physician] - 1 week - Patient Instructions Printed Discharge Instructions: DI for Acute Bronchitis Additional Instructions: You were in the ER for fevers, body aches, and cough. We believe you have a bronchitsis. Please take supportive measures such as keeping hydrated, staying warm. Please take your antibiotics that were sent to your pharmacy
[2017-09-26 19:05] VITALS: PULSE 81; TEMP 99
[2017-09-26] MEDS ORDERED: AZITHROMYCIN 250 MG TABLET PO ONE (20:12)
[2017-09-26] MEDS ORDERED: AZITHROMYCIN 250 MG TABLET ONE (20:32)
[2017-09-26 21:06] VITALS: BP 92/57
== END 2017-09-26 21:14 | disposition home or self-care (01) ==
LOC: JER 15:48
DX: J20.9 Acute bronchitis, unspecified (principal); E03.9 Hypothyroidism, unspecified; E78.00 Pure hypercholesterolemia, unspecified; J45.909 Unspecified asthma, uncomplicated
CPT/HCPCS: 71046-TC-FY; 87804; 99282-25

== ENCOUNTER 2018-04-16 03:25 | Emergency (ER) | payer BC ==
[2018-04-16 03:38] VITALS: BMI 21.1
--- NOTE | 2018-04-16 03:58 | PDOC ---
History of Present Illness - General Chief Complaint: Shortness of Breath Stated Complaint: Shortness of Breath Time Seen by Provider: 04/16/18 03:57 - History of Present Illness Initial Comments: 04/16/18 03:58 Ms. Renee is a 62 yo female w/ pmh of distant thyroidectomy (40 yrs previous) w/ subsequent hypothyroidism, PE (currently on xarelto), asthma, and vocal cord dysfunction. She was recently evaluated at [facility] 04/13-04/15 with discharge this morning and found to have Takotsubo syndrome. Currently scheduled for cardiology, ENT, and PMD follow-up. Patient reports she woke up with wheezing earlier today and decided to come in for evaluation as she was scared to be alone. Patient reports taking 2 units of home albuterol however believes this made her symptoms worse. Denies other symptoms but currently wheezing and reports she needs more air. The patient denies chest pain, shortness of breath, headache and dizziness. Denies fever, chills, nausea, vomit, diarrhea and constipation. Denies dysuria, frequency, urgency and hematuria. Allergies: Codeine, Penicillin Past History - Past Medical History Allergies/Adverse Reactions: Allergies Allergy/AdvReac Type Severity Reaction Status Date / Time codeine Allergy Difficulty Verified 04/16/18 03:36 Breathing Penicillins Allergy Verified 04/16/18 03:36 Home Medications: Ambulatory Orders Cholecalciferol (Vitamin D3) [Vitamin D] 5,000 unit PO WEEKLY 04/25/13 Albuterol 0.083% Nebulizer Jaida [Ventolin 0.083% Nebulizer Soln -] 1 neb NEB QID 08/13/17 Ipratropium [place] [Atrovent Hfa] 12.9 gm IH PRN 08/13/17 Acetaminophen [Tylenol .Regular Strength -] 650 mg PO Q6H PRN tablet 08/15/17 Albuterol 2.5/Ipratropium 0.5 [Duoneb -] 1 amp NEB Q4HWA amp 08/15/17 Albuterol 2.5/Ipratropium 0.5 [Duoneb -] 1 amp NEB QIDR amp 08/15/17 Levothyroxine [Synthroid -] 125 mcg PO DAILY@0700 tablet 08/15/17 Azithromycin [Zithromax 250mg Tablets -] 250 mg PO UTDICT #6 tab 09/26/17 Azithromycin [Zithromax Tri-Colt (3 DAYS) -] 500 mg PO DAILY #5 tablet 09/26/17 Anemia: No Asthma: Yes Cancer: Yes (THYROID) Cardiac Disorders: No COPD: No DVT: No GI Disorders: Yes (REFLUX) Hypercholesterolemia: Yes Thyroid Disease: Yes (HYPO) - Surgical History Abdominal Surgery: No Appendectomy: No Cardiac Surgery: No - Suicide/Smoking/Psychosocial Hx Smoking Status: No Smoking History: Never smoked Have you smoked in the past 12 months: No Number of Cigarettes Smoked Daily: 0 Cigars Per Day: 0 Information on smoking cessation initiated: No Hx Alcohol Use: No Drug/Substance Use Hx: No Substance Use Type: None Hx Substance Use Treatment: No Review of Systems - Review of Systems Comments:: 04/16/18 04:07 GENERAL/CONSTITUTIONAL: No fever or chills. No weakness. HEAD, EYES, EARS, NOSE AND THROAT: No change in vision. No ear pain or discharge. No sore throat. CARDIOVASCULAR: No chest pain or shortness of breath RESPIRATORY: +Wheezing as described. GASTROINTESTINAL: No nausea, vomiting, diarrhea or constipation. GENITOURINARY: No dysuria, frequency, or change in urination. MUSCULOSKELETAL: No joint or muscle swelling or pain. No neck or back pain. SKIN: No rash NEUROLOGIC: No headache, vertigo, loss of consciousness, or change in strength/ sensation. ENDOCRINE: No increased thirst. No abnormal weight change HEMATOLOGIC/LYMPHATIC: No anemia, easy bleeding, or history of blood clots. ALLERGIC/IMMUNOLOGIC: No hives or skin allergy. *Physical Exam - Vital Signs Last Vital Signs Temp Pulse Resp BP Pulse Ox 97.4 F L 65 20 127/84 98 04/16/18 03:36 04/16/18 03:36 04/16/18 03:36 04/16/18 03:36 04/16/18 03:36 - Physical Exam Comments: 04/16/18 04:07 GENERAL: +Patient extremely thin appearing. Awake, alert, and fully oriented, in no acute distress HEAD: No signs of trauma, normocephalic, atraumatic EYES: PERRLA, EOMI, sclera anicteric, conjunctiva clear ENT: +Patient neck very thin - able to appreciate anatomy clearly. Auricles normal inspection, hearing grossly normal, nares patent, oropharynx clear without exudates. Moist mucosa NECK: Normal ROM, supple, no lymphadenopathy, JVD, or masses LUNGS: +Wheezes audible on conversation requiring breaks in sentences that appear to come from trachea. Lungs grossly clear to auscultation bilaterally HEART: Regular rate and rhythm, normal S1 and S2, no murmurs, rubs or gallops, peripheral pulses normal and equal bilaterally. ABDOMEN: Soft, nontender, normoactive bowel sounds. No guarding, no rebound. No masses EXTREMITIES: Normal inspection, Normal range of motion, no edema. No clubbing or cyanosis. NEUROLOGICAL: Cranial nerves II through XII grossly intact. Normal speech, normal gait, no focal sensorimotor deficits SKIN: Warm, Dry, normal turgor, no rashes or lesions noted. Medical Decision Making - Medical Decision Making 04/16/18 05:43 Ms. Renee is a 62 yo female w/ pmh as described who presents for evaluation of wheezing exacerbation. Patient refusing labs at presentation, requesting observation only as she is afraid to stay at home alone. Discussed nebulized saline for symptomatic relief and patient consented. 04/16/18 06:17 Patient reporting relief from symptoms and much improved appearing after nebulized saline as described above. Patient requesting discharge and breathing much clearer at this time. Will discharge for further outpatient evaluation. Patient verbalized understanding and agreement and will comply. *DC/Admit/Observation/Transfer Diagnosis at time of Disposition: Wheezing, Dry throat - Discharge Dispostion Disposition: HOME - Referrals Referrals: Shilpa Schreiber [Primary Care Provider] - - Patient Instructions Additional Instructions: You were evaluated today in the ER for your wheezing. Please follow-up with inclinometer tester and ENT doctor's as soon as possible for further evaluation of trachea symptoms. Return to ER if any difficulty breathing, fever, chills, wheezing, or other concerning symptoms. - Post Discharge Activity
--- NOTE | 2018-04-16 04:45 | PDOC ---
Attending Attestation - HPI HPI: 04/16/18 04:45 The patient is a 62 year old female, with a significant past medical history of Takotsubo syndrome, PE (on Xarelto), hypothyroidism (s/p total thyroidectomy at age 19, on levothyroxine), vocal cord dysfunction, and asthma, who presents to the emergency department with, wheezing. As per patient, she was discharged today from [facility]. She reports waking up from her sleep wheezing and was worried to be home alone. She denies recent fevers, chills, headache or dizziness. She denies recent nausea, vomit, diarrhea or constipation. She denies recent dysuria, frequency, urgency or hematuria. She denies recent chest pain. Allergies: Codeine, Penicillins. Social history: Nonsmoker. Denies EtOH use and recreational drug use. Primary Care Physician: Dr. Shilpa Schreiber Sheet Combining Operator: Dr. Johnson - Physicial Exam PE: 04/16/18 04:46 GENERAL: +Patient extremely thin appearing. Awake, alert, and fully oriented, in no acute distress HEAD: No signs of trauma, normocephalic, atraumatic EYES: PERRLA, EOMI, sclera anicteric, conjunctiva clear ENT: +Patient neck very thin - able to appreciate anatomy clearly. Auricles normal inspection, hearing grossly normal, nares patent, oropharynx clear without exudates. Moist mucosa NECK: Normal ROM, supple, no lymphadenopathy, JVD, or masses LUNGS: +Wheezes audible on conversation requiring breaks in sentences that appear to come from trachea. Lungs grossly clear to auscultation bilaterally HEART: Regular rate and rhythm, normal S1 and S2, no murmurs, rubs or gallops, peripheral pulses normal and equal bilaterally. ABDOMEN: Soft, nontender, normoactive bowel sounds. No guarding, no rebound. No masses EXTREMITIES: Normal inspection, Normal range of motion, no edema. No clubbing or cyanosis. NEUROLOGICAL: Cranial nerves II through XII grossly intact. Normal speech, normal gait, no focal sensorimotor deficits SKIN: Warm, Dry, normal turgor, no rashes or lesions noted. <Julia Dawson - Last Filed: 04/16/18 05:09> - Resident Resident Name: Issa Pop - ED Attending Attestation I have performed the following: I have examined & evaluated the patient, The case was reviewed & discussed with the resident, I agree w/resident's findings & plan, Exceptions are as noted - Medical Decision Making 04/16/18 19:39 Pt was treated and released <Jeyson Brown - Last Filed: 04/16/18 19:40> Attestations - Attestations 04/16/18 04:45 Documentation prepared by Julia Dawson, acting as phlebotomist medical lab assistant for Jeyson Brown DO. <Julia Dawson - Last Filed: 04/16/18 05:09>
[2018-04-16 06:43] VITALS: BP 126/82; PULSE 66; TEMP 97.8
== END 2018-04-16 06:47 | disposition home or self-care (01) ==
LOC: JER 03:25
DX: R06.2 Wheezing (principal); J39.2 Other diseases of pharynx; I51.81 Takotsubo syndrome; J45.909 Unspecified asthma, uncomplicated; J38.02 Paralysis of vocal cords and larynx, bilateral; E78.00 Pure hypercholesterolemia, unspecified; E89.0 Postprocedural hypothyroidism; Z86.711 Personal history of pulmonary embolism; Z79.01 Long term (current) use of anticoagulants
CPT/HCPCS: 99282-25

== ENCOUNTER 2018-04-18 01:44 | Emergency (ER) | payer BC ==
--- NOTE | 2018-04-18 02:46 | PDOC ---
History of Present Illness - General History Source: Patient Exam Limitations: No Limitations - History of Present Illness Initial Comments: 04/18/18 03:39 The patient is a 62 year old female, with a significant past medical history of thyroidectomy, vocal cord dysfunction, asthma, PE (taking Xarelto), cardiomyopathy, who presents to the emergency department with difficulty breathing today after being discharged 2 days ago for similar complaint. She reportedly had a catheterization last week Saturday at [facility] for Takotsubo. She states her symptoms randomly occur while at home alone which scared her to come to the ED. She states saline nebulizer helped her during her previous visit. She states she usually develops her symptoms during the Summer months ever since 2011. She also states she feels food and water gets stuck in her throat since her vocal cord procedure in December 2017. The patient denies chest pain, headache and dizziness. The patient denies fever , chills, nausea, vomit, diarrhea and constipation. The patient denies dysuria, frequency, urgency and hematuria. Allergies: clindamycin, codeine, and penicillins Past surgical history: December 2017 vocal cord @ [facility], Catheterization March 2018, thyroidectomy, bilateral breast biopsy, nasal polyp removal Social history: Denies ETOH, illicit drug use, or tobacco PCP - Dr. Shilpa Schreiber <Lorena Olivo - Last Filed: 04/18/18 06:55> - General History Source: Patient Exam Limitations: No Limitations <Gladys Echols - Last Filed: 04/19/18 05:14> - General Stated Complaint: SHORTNESS OF BREATH Time Seen by Provider: 04/18/18 02:46 Past History <Lorena Olivo - Last Filed: 04/18/18 06:55> - Past Medical History Anemia: No Asthma: Yes Cancer: Yes (THYROID) Cardiac Disorders: No COPD: No DVT: No GI Disorders: Yes (REFLUX) Hypercholesterolemia: Yes Thyroid Disease: Yes (HYPO) - Surgical History Abdominal Surgery: No Appendectomy: No Cardiac Surgery: No - Suicide/Smoking/Psychosocial Hx Smoking Status: No Smoking History: Never smoked Have you smoked in the past 12 months: No Number of Cigarettes Smoked Daily: 0 Cigars Per Day: 0 Hx Alcohol Use: No Drug/Substance Use Hx: No Substance Use Type: None Hx Substance Use Treatment: No <Gladys Echols - Last Filed: 04/19/18 05:14> - Past Medical History Allergies/Adverse Reactions: Allergies Allergy/AdvReac Type Severity Reaction Status Date / Time codeine Allergy Difficulty Verified 04/18/18 02:56 Breathing Penicillins Allergy Verified 04/18/18 02:56 Home Medications: Ambulatory Orders Cholecalciferol (Vitamin D3) [Vitamin D] 5,000 unit PO WEEKLY 04/25/13 Albuterol 2.5/Ipratropium 0.5 [Duoneb -] 1 amp NEB QIDR amp 08/15/17 Levothyroxine [Synthroid -] 125 mcg PO DAILY@0700 tablet 08/15/17 Aspirin [ASA -] 81 mg PO DAILY 04/18/18 Atorvastatin Ca [Lipitor] 0 mg PO DAILY 04/18/18 Metoprolol Succinate [Toprol Xl] 25 mg PO DAILY 04/18/18 Review of Systems - Review of Systems Able to Perform ROS?: Yes Comments:: 04/18/18 03:39 CONSTITUTIONAL: Absent: fever, no chills, no fatigue EYES: Absent: visual changes ENT: Absent: ear pain, no sore throat CARDIOVASCULAR: Absent: chest pain, no palpitations RESPIRATORY: (+) SOB Absent: cough, GASTROINTESTINAL: Absent: abdominal pain, no nausea, no vomiting, no constipation, no diarrhea GENITOURINARY: Absent: dysuria, no frequency, no hematuria MUSCULOSKELETAL: Absent: back pain, no arthralgia, no myalgia SKIN: Absent: rash NEURO: Absent: headache <Lorena Olivo - Last Filed: 04/18/18 06:55> *Physical Exam - Vital Signs Last Vital Signs Temp Pulse Resp BP Pulse Ox 98.7 F 62 24 140/91 96 04/18/18 01:45 04/18/18 01:45 04/18/18 01:45 04/18/18 01:45 04/18/18 01:45 - Physical Exam Comments: 04/18/18 03:40 GENERAL: (+) moderate respiratory distress HEAD: Normal with no signs of trauma. EYES: PERRLA, EOMI, sclera anicteric, conjunctiva clear. ENT: Ears normal, nares patent, oropharynx clear without exudates. Moist mucous membranes. NECK: Normal range of motion, supple without lymphadenopathy, JVD, or masses. LUNGS: (+) wheezing. Breath sounds equal, No crackles. HEART:Regular rate and rhythm, normal S1 and S2 without murmur, rub or gallop. ABDOMEN: Soft, nontender, normoactive bowel sounds. No guarding, no rebound. No masses palpable. EXTREMITIES: Normal range of motion, no edema. No clubbing or cyanosis. No erythema, or tenderness. NEUROLOGICAL: Cranial nerves II through XII grossly intact. Normal speech. No focal neurological deficits. MUSCULOSKELETAL: Back non-tender to palpation, no CVA tenderness SKIN: Warm, Dry, normal turgor, no rashes or lesions noted. <Lorena Olivo - Last Filed: 04/18/18 06:55> ED Treatment Course - LABORATORY CBC & Chemistry Diagram: 04/18/18 04:52 04/18/18 04:52 <Lorena Olivo - Last Filed: 04/18/18 06:55> - LABORATORY CBC & Chemistry Diagram: 04/18/18 04:52 04/18/18 04:52 <Gladys Echols - Last Filed: 04/19/18 05:14> Medical Decision Making - Medical Decision Making 04/18/18 05:48 [facility] ED was called at this time and the case was discussed with ED attending, Dr. Medina who advised we call Dr. Gant ([phone]). 04/18/18 05:54 Dr. Dumont was paged via phone answering service at this time requesting a call back for doctor to doctor consult. 04/18/18 06:56 Dr. Cornell was called and the patient's case was discussed at length. He advises treatment with solumedrol and observe for decreased swelling. He advises the patient be seen by her ENT as soon as possible, however, has agreed to see the patient in the office if she is unable to get an appointment with her original ENT. <Lorena Olivo - Last Filed: 04/18/18 06:55> - Critical Care Time Total Critical Care Time (minutes): 60 Critical Care Statement: The care of this patient involved high complexity decision making to prevent further life threatening deterioration of the patient 's condition and/or to evaluate & treat vital organ system(s) failure or risk of failure. - Medical Decision Making 04/18/18 04:47 Ms Renee is a 62 yo F with a chronic issue with her vocal cords Briefly, she had a h/o thyroid cancer s/p thyroidectomy complicated by vocal cord injury Pt has had increasing scarring Was seen at an outside facility where where she is s/p 2 vocal cord dilations The second one was done in the spring of 2017 and since that time she had noted difficulty when she swallows, she feels that she is aspirating She was seen by her PMD who warned her that her laryngeal anatomy is such that she risks airway obstruction, she was referred for tracheostomy Pt is unwilling to have this She decided to get a 2nd opinion She was also told this by Jair She presents because she feels dehydrated as she has difficulty swallowing She signed out of [facility] yesterday On examination: pt has audible stridorous breathing Pt appears to have difficulty breathin Lungs: transmitted air noises Card: RRR No abd tenderness No lower extremity edema Will do: Saline nebs (She believes this has helped her significantly Labs IV hydration Re assess Twelve-lead EKG was performed and reviewed by me. There is normal sinus rhythm with a normal rate of 69 bpm. Left axis deviation. The intervals are normal. There are no ST elevations or depressions. T wave inversions II, III, aVF, v4- v6 04/18/18 06:31 Laboratory Tests 04/18/18 04/18/18 04:52 04:52 WBC 4.3 Hgb 11.3 Hct 34.1 Plt Count 209 Sodium 133 L Potassium 3.8 Chloride 91 L Carbon Dioxide 36 H BUN 7 Creatinine 0.7 Random Glucose 110 H Creatine Kinase 2016 H CK-MB (CK-2) 10.17 H Troponin I 0.29 H B-Natriuretic Peptide 641.30 H Trop elevated, likely expected given VERY recent Cath CXR does not demonstrate CHF, pneumonia, etc Pt given Saline nebs per her request Pt given albuterol nebs per her request 04/18/18 06:35 Call placed to [facility] for transfer They recommend calling pt ENT directly Call placed to ENT - Dr Joshua Castillo Covering physician state that I should call back when the office is open Call placed to ENT at [facility] Case reviewed with Dr Cornell He recommends Steroid in the event pts longstanding subglottic stenosis which seems to have worsened can be slightly improve Steroids given Repeat Xray as pt is stating she is having increased difficulty breathing Pt signed out to Dr Estrada pending discussion with Dr Amaral (ENT at [facility]) Will repeat trop to be sure it is downward trending Clinical Impression: progression of subglottic stenosis, repeat presentation <Gladys Echols - Last Filed: 04/19/18 05:14> *DC/Admit/Observation/Transfer - Attestations Scribe Attestion: 04/18/18 03:40 Documentation prepared by Lorena Olivo, acting as paramedical aide for Gladys Echols MD <Lorena Olivo - Last Filed: 04/18/18 06:55> <Gladys Echols - Last Filed: 04/19/18 05:14> Diagnosis at time of Disposition: Radiation fibrosis - Discharge Dispostion Disposition: HOME Condition at time of disposition: Stable - Referrals Referrals: Shilpa Schreiber [Primary Care Provider] - Joshua Dumont [Non Staff, Medical] - - Patient Instructions Printed Discharge Instructions: DI for Shortness of Breath Additional Instructions: Please follow up with Dr. Dumont now in his office. Print Language: CENTRAL AFRICAN - Post Discharge Activity
[2018-04-18 02:56] VITALS: BMI 21.1
[2018-04-18] MEDS ORDERED: ALBUTEROL SO4 0.083% IH SOL 2.5 MG/3 ML VIAL.NEB. NEB ONE ×2 (03:10→06:19)
[2018-04-18] MEDS ORDERED: SODIUM CHLORIDE FOR INHALATION 3 ML VIAL.NEB IH ONE (03:26)
[2018-04-18] MEDS ORDERED: SODIUM CHLORIDE 1,000 ML IV STA (04:46)
[2018-04-18] MEDS ORDERED: ACETAMINOPHEN 1000 MG/100 ML VIAL (NON FORMULARY) IVPB ONE (04:52)
[2018-04-18] MEDS ORDERED: ACETAMINOPHEN INJECTION 100 ML IVPB ONE (05:06)
[2018-04-18 05:09] LABS: BASO % 0.9 % (0-2.0); HEMATOCRIT 34.1 % (32.4-45.2); HEMOGLOBIN 11.3 GM/dL (10.7-15.3); LYMPH % 25.2 % (8-40); MCHC 33.3 g/dl (32.0-36.0); MEAN CELL VOLUME 81.1 fl (80-96); MEAN PLT VOLUME 8.5 fl (7.5-11.1); MONO % 9.5 % (3.8-10.2); NEUT % 62.4 % (42.8-82.8); PLATELET COUNT 209 K/MM3 (134-434); RDW 13.6 % (11.6-15.6); WHITE BLOOD COUNT 4.3 K/mm3 (4.0-10.0)
[2018-04-18 05:30] LABS: ALBUMIN 3.6 g/dl (3.4-5.0); ANION GAP 6 MMOL/L (8-16); CHLORIDE 91 mmol/L (98-107); CO2 36 mmol/L (21-32); CREATININE 0.7 mg/dL (0.55-1.02); GLUCOSE,RANDOM 110 mg/dL (74-106); POTASSIUM 3.8 mmol/L (3.5-5.1); SGOT/AST 45 U/L (15-37); SGPT/ALT 36 U/L (12-78); SODIUM 133 mmol/L (136-145)
[2018-04-18 05:43] LABS: ALK PHOS 55 U/L (45-117); BILIRUBIN,TOTAL 0.4 mg/dL (0.2-1.0); BLOOD UREA NITROGEN 7 mg/dL (7-18)
[2018-04-18] MEDS ORDERED: methylPREDNISolone NA SUCC 125 MG/2 ML VIAL IVPUSH ONE (06:42)
[2018-04-18] MEDS ORDERED: methylPREDNISolone NA SUCC 125 MG/2 ML VIAL ONE (06:45)
--- NOTE | 2018-04-18 08:17 | PDOC ---
*Physical Exam - Vital Signs Last Vital Signs Temp Pulse Resp BP Pulse Ox 98.7 F 62 24 140/91 96 04/18/18 01:45 04/18/18 01:45 04/18/18 01:45 04/18/18 01:45 04/18/18 01:45 ED Treatment Course - LABORATORY CBC & Chemistry Diagram: 04/18/18 04:52 04/18/18 04:52 - ADDITIONAL ORDERS Additional order review: Laboratory Results 04/18/18 04:52 Sodium 133 L Potassium 3.8 Chloride 91 L Carbon Dioxide 36 H Anion Gap 6 L BUN 7 Creatinine 0.7 Creat Clearance w eGFR > 60 Random Glucose 110 H Calcium 7.0 L Total Bilirubin 0.4 AST 45 H ALT 36 Alkaline Phosphatase 55 Creatine Kinase 2016 H Creatine Kinase Index 0.5 CK-MB (CK-2) 10.17 H Troponin I 0.29 H B-Natriuretic Peptide 641.30 H Total Protein 7.0 Albumin 3.6 04/18/18 04:52 RBC 4.20 MCV 81.1 MCHC 33.3 RDW 13.6 MPV 8.5 Neutrophils % 62.4 Lymphocytes % 25.2 Monocytes % 9.5 Eosinophils % 2.0 D Basophils % 0.9 - Medications Given in the ED: ED Medications Discontinued Medications Generic Name Dose Route Start Last Admin Trade Name Marguerite PRN Reason Stop Dose Admin Acetaminophen 1,000 mg 04/18/18 04:52 04/18/18 06:57 Ofirmev Injection - IVPB 04/18/18 04:53 Not Given ONCE ONE Albuterol Sulfate 1 amp 04/18/18 03:10 04/18/18 06:57 Ventolin 0.083% Nebulizer Soln - NEB 04/18/18 03:11 Not Given ONCE ONE Sodium Chloride 1,000 mls @ 1,000 mls/hr 04/18/18 04:46 04/18/18 05:11 Normal Saline - IV 04/18/18 05:45 1,000 mls/hr ASDIR STA Administration Methylprednisolone Sodium Succinate 125 mg 04/18/18 06:42 04/18/18 06:57 Solu-Medrol - IVPUSH 04/18/18 06:43 125 mg ONCE ONE Administration Sodium Chloride 3 ml 04/18/18 03:26 04/18/18 03:44 Normal Saline For Inhalation - IH 04/18/18 03:27 3 ml ONCE ONE Administration Medical Decision Making - Medical Decision Making 04/18/18 08:13 62y F thyroid ca cb subglottic<?> stenosis s/p dilation x 2 (last time in 12/2017 ), follows with dr. Snyder at [place], hx of recently dx takosubo at [facility] sp cath (04/13) presents with complaing of increasing sob for the past month. Pt had called dr. snyder and was supposed to see him today. pt was given nebs and solumedrol with improvement pts labs rviewed, noted for elev trop of .29 - suspect trending down from her takosubo episode - no complaint of sob/cp will discuss with dr. snyder to confirm see if he can see her later today 04/18/18 09:22 case nataliia Snyder garee with our mangement, and will see the pt later today 04/18/18 09:52 pt trop trending lower no cardiac complaints pt has slight stridor - but after discussion with dr. snyder kaiden tis normal for her condition pt speaking complete sentences. sats normal will dc the pt to fu with dr. snyder now return precautions were discussed I discussed the physical exam findings, ancillary test results and final diagnoses with the patient. I answered all of the patient's questions. The patient was satisfied with the care received and felt comfortable with the discharge plan and treatment plan. The patient will call their primary care physician within 24 hours to arrange follow-up and will return to the Emergency Department with any new, persistent or worsening symptoms. *DC/Admit/Observation/Transfer Diagnosis at time of Disposition: Radiation fibrosis - Discharge Dispostion Disposition: HOME Condition at time of disposition: Stable Decision to Admit order: No - Referrals Referrals: Shilpa Schreiber [Primary Care Provider] - Joshua Dumont [Non Staff, Medical] - - Patient Instructions Printed Discharge Instructions: DI for Shortness of Breath Additional Instructions: Please follow up with Dr. Dumont now in his office. Print Language: TURKMEN - Post Discharge Activity
[2018-04-18 10:13] VITALS: BP 164/89; PULSE 71; TEMP 97.6
--- NOTE | 2018-04-18 10:33 | EKG ---
Test Reason : Blood Pressure : / mmHG Vent. Rate : 069 BPM Atrial Rate : 069 BPM P-R Int : 166 ms QRS Dur : 096 ms QT Int : 446 ms P-R-T Axes : 067 -57 254 degrees QTc Int : 477 ms NORMAL SINUS RHYTHM POSSIBLE LEFT ATRIAL ENLARGEMENT LEFT ANTERIOR FASCICULAR BLOCK LEFT VENTRICULAR HYPERTROPHY PROLONGED QT ABNORMAL ECG WHEN COMPARED WITH ECG OF 13-AUG-2017 12:27, VENT. RATE HAS DECREASED BY 59 BPM CRITERIA FOR SEPTAL INFARCT ARE NO LONGER PRESENT T WAVE INVERSION NOW EVIDENT IN INFERIOR LEADS T WAVE INVERSION NOW EVIDENT IN LATERAL LEADS Confirmed by TICO MURRAY, DAMARIS ([id number]) on 04/18/2018 10:33:06 AM Referred By: Confirmed By:DAMARIS DOSHI MD
== END 2018-04-18 10:14 | disposition home or self-care (01) ==
LOC: JER 01:44
PROC: 3E033GC Introduction of Other Therapeutic Substance into Peripheral Vein, Percutaneous Approach (ICD-10-PCS; principal; 2018-04-18)
PROC: 3E0337Z Introduction of Electrolytic and Water Balance Substance into Peripheral Vein, Percutaneous Approach (ICD-10-PCS; 2018-04-18)
DX: J70.1 Chronic and other pulmonary manifestations due to radiation (principal)
CPT/HCPCS: 36415; 71045-TC-FY; 80053; 82550; 82553; 83880; 84484; 85025; 93005; 93010; 99283-25; J7030

== ENCOUNTER 2018-04-26 06:14 | Emergency (ER) | payer BC ==
[2018-04-26 06:54] VITALS: TEMP 98.5; BMI 21.2
--- NOTE | 2018-04-26 07:57 | PDOC ---
Attending Attestation - Resident Resident Name: Gilbert Fournier - ED Attending Attestation I have performed the following: I have examined & evaluated the patient, The case was reviewed & discussed with the resident, I agree w/resident's findings & plan, Exceptions are as noted - HPI HPI: 04/26/18 07:54 Ms Renee presents to the ER with a complaint of palpitations She is s/p recent trach placement, She was just discharged from the hospital She did have an argument with her son prior to arrival to the ER She was unable to car pick up driver her medications (does not know the name, was transitioned from Metoprolol) No chest pain No shortness of breath 04/26/18 07:54 04/26/18 09:26 - Physicial Exam PE: 04/26/18 07:54 GENERAL: The patient is in no acute distress. EYES: PERRLA, EOMI, sclera anicteric, conjunctiva clear. ENT: Ears normal, nares patent, oropharynx clear without exudates. Moist mucous membranes. NECK: Normal range of motion, trach in place, no bleeding LUNGS: Breath sounds equal, clear to auscultation bilaterally. No wheezes, and no crackles. HEART:Regular rhythm, tachycardiac ABDOMEN: Soft, nontender, normoactive bowel sounds. EXTREMITIES: Normal range of motion, no edema. No clubbing or cyanosis. No erythema, or tenderness. NEUROLOGICAL: Cranial nerves II through XII grossly intact. Normal speech. No focal neurological deficits. MUSCULOSKELETAL: Back non-tender to palpation, no CVA tenderness SKIN: Warm, Dry, normal turgor, no rashes or lesions noted. - Medical Decision Making 04/26/18 07:56 EKG: Will do: Labs IVF CXR Call pharmacy to confirm medication dosing Re assess 04/26/18 07:57 04/26/18 09:22 EKG: SR rate of 72 bpm, Left axis deviation, prominent t wave inversions inferiorly and laterally, no st elevations or depressions, QTc: 486ms 04/26/18 09:26 upon re assessment, HR 70s Laboratory Tests 04/26/18 04/26/18 09:20 09:20 WBC 4.7 Hgb 9.9 L Hct 29.4 L Plt Count 306 D BUN 5 L Creatinine 0.5 L Creatine Kinase 226 H Creatine Kinase Index 1.5 CK-MB (CK-2) 3.44 Troponin I 0.03 TSH 12.10 H Pt improved Will discharge to home Pt to follow up with PMD Clinical Impression: palpitations (Resolved), initial presentation
[2018-04-26] MEDS ORDERED: SODIUM CHLORIDE 0.9% 500 ML INFUS.BAG IV ONE (07:58)
--- NOTE | 2018-04-26 08:05 | PDOC ---
History of Present Illness - General Chief Complaint: Palpitations Stated Complaint: PALPITATIONS Time Seen by Provider: 04/26/18 07:10 History Source: Patient, Old Records Exam Limitations: No Limitations - History of Present Illness Initial Comments: 62 y/o female presenting to [facility] ER via private auto complaining of palpitations. Pt reports she began experiencing palpitations and sensation of tachycardia with lip numbness this morning around 5a while she was at rest. She found her heart rate to be 206 bpm via home finger probe. She drove to [facility] with her son - reports a verbal argument ensued after her son stopped for food at a store. The wait was too long at [facility] so she left and drove here. Pt was discharged yesterday from [facility]. Pt is s/p tracheostomy placement for vocal cord dysfunction s/p radiation therapy for thyroid disorder at age 19. Reports similar periods of tachycardia while inpatient. H/o Takotsubo noted on catheterization in March 2018. Was on metoprolol and recently transitioned to Verapamil 80 while in the hospital. A new prescription was sent to her pharmacy but she has not filled it yet. Has not received either metoprolol or verapamil in >48 hrs. Pt reports a lot of anxiety after placement of the trach and very poor support from her son. PCP: Dr. Shilpa Schreiber Medical Hx: Thyroidectomy Vocal cord dysfunction Asthma PE (taking Xarelto) Cardiomyopathy, Takotsubo (s/p Catheterization at [facility] March 2018) Surgical Hx: December 2017 vocal cord @ [facility] Catheterization March 2018 Thyroidectomy Bilateral breast biopsy Nasal polyp removal Trach and collar, 03/2018 @ [facility] Past History - Past Medical History Allergies/Adverse Reactions: Allergies Allergy/AdvReac Type Severity Reaction Status Date / Time codeine Allergy Difficulty Verified 04/18/18 02:56 Breathing Penicillins Allergy Verified 04/18/18 02:56 Home Medications: Ambulatory Orders Aspirin [ASA -] 81 mg PO DAILY 04/26/18 Atorvastatin Calcium [Lipitor] 20 mg PO HS 04/26/18 Levothyroxine [Synthroid -] 125 mcg PO DAILY 04/26/18 Anemia: No Asthma: Yes Cancer: Yes (THYROID) Cardiac Disorders: No COPD: No DVT: No GI Disorders: Yes (REFLUX) Hypercholesterolemia: Yes Thyroid Disease: Yes (HYPO) - Surgical History Abdominal Surgery: No Appendectomy: No Cardiac Surgery: No - Suicide/Smoking/Psychosocial Hx Smoking Status: No Smoking History: Never smoked Have you smoked in the past 12 months: No Number of Cigarettes Smoked Daily: 0 Cigars Per Day: 0 Hx Alcohol Use: No Drug/Substance Use Hx: No Substance Use Type: None Hx Substance Use Treatment: No Cardiac Specific PMH - Complaint Specific PMHX Angina: No Pulmonary Embolus: No Review of Systems - Review of Systems Able to Perform ROS?: Yes Is the patient limited Filipino proficient: No Constitutional: No: Chills, Diaphoresis, Fever Respiratory: No: Shortness of Breath Cardiac (ROS): Yes: See HPI, Chest Pain, Palpitations. No: Edema, Lightheadedness, Syncope ABD/GI: No: Constipated, Diarrhea, Nausea, Vomiting, Abdominal cramping : No: Burning, Dysuria, Discharge, Flank Pain, Hematuria Neurological: Yes: Tingling Psychiatric: Yes: Anxiety, Stressors Hematologic/Lymphatic: No: Easy Bleeding, Easy Bruising *Physical Exam - Vital Signs Last Vital Signs Temp Pulse Resp BP Pulse Ox 98.5 F 79 16 104/68 100 04/26/18 06:30 04/26/18 11:55 04/26/18 11:55 04/26/18 11:55 04/26/18 11:55 - Physical Exam Comments: Constitutional: Well-developed, well-nourished female in no acute distress. Found semi-fowlers in hospital bed. Alert and oriented x4. Answered all questions appropriately and completely. Speech was non-labored, non-pressured. HEENT: Normocephalic. No obvious external signs of trauma. Hearing grossly normal. No nasal discharge. Neck is supple, trachea is midline. No JVD. Cardiovascular: Tachycardic rate and regular rhythm. No murmur, rubs, clicks, or gallops. Peripheral pulses: Radial pulses full. Respiratory: Breathing unlabored. Equal chest rise and fall. Clear to auscultation bilaterally. No stridor, no wheezing, no rhonchi. Trach with collar and tie in place. Gastrointestinal: abdomen is soft, non-tender, non-distended. Neuro: Alert and oriented. Moving all four extremities spontaneously. Skin: Warm, dry, and intact. Psych: Affect: appropriate. Mood: concerned. ED Treatment Course - LABORATORY CBC & Chemistry Diagram: 04/26/18 09:20 04/26/18 09:20 - ADDITIONAL ORDERS Additional order review: Laboratory Results 04/26/18 09:20 Sodium 141 Potassium 3.6 Chloride 99 Carbon Dioxide 33 H Anion Gap 9 BUN 5 L Creatinine 0.5 L Creat Clearance w eGFR > 60 Random Glucose 100 Calcium 7.4 L Total Bilirubin 0.6 AST 16 ALT 20 Alkaline Phosphatase 60 Creatine Kinase 226 H Creatine Kinase Index 1.5 CK-MB (CK-2) 3.44 Troponin I 0.03 Total Protein 6.6 Albumin 3.3 L TSH 12.10 H 04/26/18 09:20 RBC 3.67 MCV 80.0 MCHC 33.7 RDW 14.2 MPV 7.8 Neutrophils % 73.4 Lymphocytes % 13.8 D Monocytes % 10.8 H Eosinophils % 1.3 Basophils % 0.7 - RADIOLOGY Radiology Studies Ordered: Category Date Time Status CHEST X-RAY PORTABLE* [RAD] Stat Radiology 04/26/18 07:51 Completed - Medications Given in the ED: ED Medications Discontinued Medications Generic Name Dose Route Start Last Admin Trade Name Freq PRN Reason Stop Dose Admin Sodium Chloride 500 ml 04/26/18 07:58 04/26/18 10:15 Normal Saline - IV 04/26/18 07:59 500 ml ONCE ONE Administration Verapamil HCl 80 mg 04/26/18 09:57 04/26/18 10:35 Calan - PO 04/26/18 09:58 80 mg ONCE ONE Administration Medical Decision Making - Medical Decision Making *Reviewed nursing notes and prior visit documentation. 62 y/o presenting for palpitations. S/p trach and collar on 18 April 2018 and discharge from [facility] yesterday. Afebrile. Vitals remarkable for tachycardia to 130 without hyper or hypotension. Unrevealing physical exam. Suspect secondary to medication withdrawal. Low suspicion for ACS, arrhythmia, PE, or infectious cause. Considered PE given recent hospitalization however pt is not complaining of SOB or sustained chest pain. No fever. Tachycardia resolved prior to intervention. Additionally, pt is on rivaroxaban for previous PE in October 2017; reports good compliance. Will obtain CBC, CMP, Cardiac Profile, TSH , and CXR. Ordered NS IVFB for tachycardia. EKG: Sinus rhythm at a ventricular rate of 72 bpm. Normal axis. Normal intervals. Narrow QRS. T wave inversions in all leads. No ST segment elevation or depression. Unchanged EKG from previous EKG dated 18 April 2018. CBC unremarkable for leukocytosis. CMP unremarkable for electrolyte abnormality or LFT elevation. CK mildly elevated but downtrending from previous two weeks ago. Troponin and CK-MB not elevated. Noted TSH elevation. Suspect Synthroid dosing problem. Will defer alterations to primary care. Verified new prescription for Verapamil 80mg q8h with pharmacist. Will give first dose in department. Pt has been on continuous cardiac monitoring for >3hrs. Has remained in a sinus rhythm averaging 70 bpm. No elevation above 100 since noted to be 130 during initial interview. Discussed imaging and laboratory results with pt. Answered all questions. Provided return precautions. Pt expressed verbal understanding and agreement with plan to discharge home with outpatient follow up. *DC/Admit/Observation/Transfer Diagnosis at time of Disposition: Palpitations - Discharge Dispostion Disposition: HOME Condition at time of disposition: Good Decision to Admit order: No - Referrals Referrals: Shilpa Schreiber [Primary Care Provider] - Sade Burroughs MD [Staff Physician] - - Patient Instructions Printed Discharge Instructions: DI for Palpitations Additional Instructions: Your blood work showed an elevation in your TSH. I do not think this is the cause of your fast heart rate this morning. I have attached a copy of your lab work to this packet. No changes have been made to your medications today. Please go to [facility] to get your new medications TODAY. 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 You will need to call to make an appointment. Go to the nearest emergency department if your condition worsens or you feel like you need additional emergency evaluation. Print Language: YI - Post Discharge Activity
[2018-04-26 09:30] LABS: BASO % 0.7 % (0-2.0); EOS % 1.3 % (0-4.5); HEMATOCRIT 29.4 % (32.4-45.2); HEMOGLOBIN 9.9 GM/dL (10.7-15.3); LYMPH % 13.8 % (8-40); MCH 26.9 pg (25.7-33.7); MCHC 33.7 g/dl (32.0-36.0); MEAN PLT VOLUME 7.8 fl (7.5-11.1); MONO % 10.8 % (3.8-10.2); NEUT % 73.4 % (42.8-82.8); PLATELET COUNT 306 K/MM3 (134-434); RBC 3.67 M/mm3 (3.60-5.2); RDW 14.2 % (11.6-15.6); WHITE BLOOD COUNT 4.7 K/mm3 (4.0-10.0)
[2018-04-26] MEDS ORDERED: VERAPAMIL HCL 80 MG TABLET PO ONE (09:57)
[2018-04-26 09:58] LABS: ALBUMIN 3.3 g/dl (3.4-5.0); ANION GAP 9 MMOL/L (8-16); BLOOD UREA NITROGEN 5 mg/dL (7-18); CALCIUM 7.4 mg/dL (8.5-10.1); CHLORIDE 99 mmol/L (98-107); CO2 33 mmol/L (21-32); GLUCOSE,RANDOM 100 mg/dL (74-106); POTASSIUM 3.6 mmol/L (3.5-5.1); SODIUM 141 mmol/L (136-145)
[2018-04-26 10:10] LABS: ALK PHOS 60 U/L (45-117); BILIRUBIN,TOTAL 0.6 mg/dL (0.2-1.0); CREATININE 0.5 mg/dL (0.55-1.02); SGOT/AST 16 U/L (15-37); SGPT/ALT 20 U/L (12-78); TOT PROT 6.6 g/dl (6.4-8.2)
[2018-04-26 12:02] VITALS: BP 104/68; PULSE 79
--- NOTE | 2018-04-28 11:08 | EKG ---
Test Reason : Blood Pressure : / mmHG Vent. Rate : 072 BPM Atrial Rate : 072 BPM P-R Int : 160 ms QRS Dur : 092 ms QT Int : 444 ms P-R-T Axes : 063 -56 234 degrees QTc Int : 486 ms NORMAL SINUS RHYTHM INCOMPLETE RIGHT BUNDLE BRANCH BLOCK LEFT ANTERIOR FASCICULAR BLOCK SEPTAL INFARCT , AGE UNDETERMINED MARKED T WAVE ABNORMALITY, CONSIDER ANTEROLATERAL ISCHEMIA ABNORMAL ECG WHEN COMPARED WITH ECG OF 18-APR-2018 05:03, INCOMPLETE RIGHT BUNDLE BRANCH BLOCK IS NOW PRESENT SEPTAL INFARCT IS NOW PRESENT Confirmed by ILIA MUNOZ MD ([id number]) on 04/28/2018 11:08:10 AM Referred By: Confirmed By:ILIA MUNOZ MD
== END 2018-04-26 12:02 | disposition home or self-care (01) ==
LOC: JER 06:14
DX: R00.2 Palpitations (principal); Q31.8 Other congenital malformations of larynx; I42.8 Other cardiomyopathies; J45.909 Unspecified asthma, uncomplicated; I51.81 Takotsubo syndrome; Z86.711 Personal history of pulmonary embolism; Z79.01 Long term (current) use of anticoagulants; E89.0 Postprocedural hypothyroidism; Z93.0 Tracheostomy status
CPT/HCPCS: 36415; 71045-TC-FY; 80053; 82550; 82553; 84443; 84484; 85025; 93005; 93010; 99283-25

== ENCOUNTER 2018-09-14 10:40 | Emergency (ER) | payer OTHER, BC ==
[2018-09-14 10:59] VITALS: BP 116/62; PULSE 70; TEMP 98.1; BMI 22.8
[2018-09-14] MEDS ORDERED: ACETAMINOPHEN 325 MG TABLET (FP) PO ONE (11:37)
[2018-09-14] MEDS ORDERED: ACETAMINOPHEN 325 MG TABLET (FP) ONE (11:39)
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
== END 2018-09-14 11:43 | disposition home or self-care (01) ==
LOC: JERFT 10:40
DX: S43.402A Unspecified sprain of left shoulder joint, initial encounter (principal); V43.52XA Car driver injured in collision with other type car in traffic accident, initial encounter; Y92.488 Other paved roadways as the place of occurrence of the external cause; Y93.89 Activity, other specified; Y99.8 Other external cause status; E03.9 Hypothyroidism, unspecified; Z85.850 Personal history of malignant neoplasm of thyroid
CPT/HCPCS: 99281-25

== ENCOUNTER 2020-05-10 12:54 | Emergency (ER) | payer BC ==
[2020-05-10 13:09] VITALS: BMI 27.2
--- NOTE | 2020-05-10 13:46 | PDOC ---
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 She had been seen by her ENT, Dr. Morel, at [facility] one week ago. Her trach was changed to a long-term cannula, and since then has been coughing with sob on exertion and w/ speaking. Denies fever/chills, hemoptysis, syncope, cp, abd pain, n/v/d/c. PMH: as in HPI SH: see below Meds: see med list Allergies: codeine, PCN Tob/Etoh/Rec drugs: neg x3 ROS GENERAL/CONSTITUTIONAL: No fever or chills. No weakness. HEENT: No change in vision. No ear pain or discharge. No sore throat. CARDIOVASCULAR: No chest pain or shortness of breath RESPIRATORY: No cough, wheezing, or hemoptysis. GASTROINTESTINAL: No nausea, vomiting, diarrhea or constipation. GENITOURINARY: No dysuria, frequency, or change in urination. MUSCULOSKELETAL: No joint or muscle swelling or pain. No neck or back pain. SKIN: No rash NEUROLOGIC: No headache, vertigo, loss of consciousness, or change in strength/sensation. ENDOCRINE: No increased thirst. No abnormal weight change HEMATOLOGIC/LYMPHATIC: No anemia, easy bleeding, or history of blood clots. ALLERGIC/IMMUNOLOGIC: No hives or skin allergy. PE GENERAL: Awake, alert, and fully oriented; no acute distress HEAD: No signs of trauma, normocephalic, atraumatic EYES: PERRLA, EOMI, sclera anicteric, conjunctiva clear ENT: Auricles normal inspection, hearing grossly normal, nares patent, moist mucosa, oropharynx clear without exudates. NECK: Normal ROM, supple, no LAD, JVD, or masses HEART: Regular rate and rhythm, normal S1/S2, no murmurs, rubs or gallops, peripheral pulses normal and equal bilaterally. LUNGS: No distress, speaks full sentences, clear to auscultation bilaterally ABDOMEN: Soft, nontender. No guarding, no rebound. No masses EXTREMITIES: Normal inspection, Normal range of motion, no edema. No clubbing or cyanosis. NEUROLOGICAL: CNII-XII grossly intact. Normal speech, no focal sensorimotor deficits SKIN: Warm, Dry, normal turgor, no rashes or lesions noted Assessment and Plan 1. tracheostomy complication - contact her ENT 2. PE - moderate risk Well's Score 3. PNA Wilfrid Ricardo, PGY1 Emergency Medicine Past History - Medical History Allergies/Adverse Reactions: Allergies Allergy/AdvReac Type Severity Reaction Status Date / Time codeine Allergy Difficulty Verified 05/10/20 13:01 Breathing Penicillins Allergy Verified 05/10/20 13:01 Home Medications: Ambulatory Orders Aspirin [ASA -] 81 mg PO DAILY 04/26/18 Atorvastatin Calcium [Lipitor] 20 mg PO HS 04/26/18 Levothyroxine [Synthroid -] 125 mcg PO DAILY 04/26/18 Anemia: No Asthma: Yes Cancer: Yes (THYROID) Cardiac Disorders: No COPD: No DVT: No GI Disorders: Yes (REFLUX) Hypercholesterolemia: Yes Thyroid Disease: Yes (HYPO) - Surgical History Abdominal Surgery: No Appendectomy: No Cardiac Surgery: No - Immunization History Immunization Up to Date: No - Psycho-Social/Smoking History Smoking Status: No Smoking History: Never smoked Have you smoked in the past 12 months: No Number of Cigarettes Smoked Daily: 0 Cigars Per Day: 0 *Physical Exam - Vital Signs Last Vital Signs Temp Pulse Resp BP Pulse Ox 98.0 F 84 20 139/96 100 05/10/20 13:01 05/10/20 13:01 05/10/20 13:01 05/10/20 13:01 05/10/20 13:01 Medical Decision Making - Medical Decision Making 05/10/20 15:21 64F presents to the ED with difficulty breathing w/ tracheotomy. She had seen Dr. Morel last saturday and had trach changed out to a long-term cannula. She's tachycardic but otherwise stable. Spoke with Dr. Morel, ENT, and he stated that she would need an emergent evaluation by ENT. He said that he would see the pt through an ED to ED transfer to [facility]. Spoke with Dr. Valles, ED attending at [facility] and agreed to transfer. Pt will be transfered via ACLS. 05/10/20 17:43 Called respiratory - they suctioned out mucus plug in the cannula. Transfered out to [facility] via EMS. Discharge - Discharge Information Problems reviewed: Yes Clinical Impression/Diagnosis: Tracheostomy malfunction Tracheostomy complication Qualifiers: Tracheostomy complication: unspecified Qualified Code(s): J95.00 - Unspecified tracheostomy complication Condition: Fair Disposition: TRANSFER ACUTE CARE/OTHER HOSP - Follow up/Referral Referrals: Shilpa Schreiber [Primary Care Provider] - - Patient Discharge Instructions - Post Discharge Activity - Transfer to Acute Care Facility [facility] Accepting Physician:: Dr. Valles (ED), Dr. Morel (ENT)
--- NOTE | 2020-05-10 15:21 | PDOC ---
Attending Attestation - Resident Resident Name: Wilfrid Ricardo - ED Attending Attestation I have performed the following: I have examined & evaluated the patient, The case was reviewed & discussed with the resident, I agree w/resident's findings & plan - HPI HPI: 05/10/20 15:18 64-year-old female with history of tracheal stricture following radiation status post tracheostomy now status post revision with placement of Passy-Britni valve presents for increasing difficulty breathing through new tracheostomy, bringing up phlegm but no bleeding. - Physicial Exam PE: 05/10/20 15:18 Vital signs stable Seated comfortably in stretcher able to speak and breathe comfortably, but did have episode where she was coughing up yellow phlegm with some difficulty moving air. O2 sat is within normal limits on room air, no acute distress. Lungs overall clear and symmetric - Medical Decision Making 05/10/20 15:19 64-year-old female with increasing discomfort and difficulty breathing through new tracheostomy, likely with some mucus plugging, no evidence of bleeding or infection on examination. Airway patent here, no acute respiratory distress. Tracheostomy suctioned, no other acute complication Discussed with patient's ENT surgeon, Dr. Morel, at [facility], who accepts for transfer to [place] ED. Signout given to Dr. Valles in ED, who accepts. Will arrange transfer Respiratory involved and at bedside to assist Discharge - Discharge Information Problems reviewed: Yes Clinical Impression/Diagnosis: Tracheostomy malfunction Tracheostomy complication Qualifiers: Tracheostomy complication: unspecified Qualified Code(s): J95.00 - Unspecified tracheostomy complication Condition: Fair Disposition: TRANSFER ACUTE CARE/OTHER HOSP - Follow up/Referral Referrals: Shilpa Schreiber [Primary Care Provider] - - Patient Discharge Instructions - Post Discharge Activity - Transfer to Acute Care Facility [facility] Accepting Physician:: dAriel(ENT)/Hai(ED)
[2020-05-10 19:07] VITALS: BP 132/74; PULSE 71; TEMP 98.3
== END 2020-05-10 19:05 | disposition short-term general hospital (02) ==
LOC: JER 12:54
DX: J95.00 Unspecified tracheostomy complication (principal)
CPT/HCPCS: 99285-25

== ENCOUNTER 2023-10-12 10:29 | Emergency (ER) | payer OTHER, BC ==
[2023-10-12 10:34] VITALS: RESP 16; BMI 22.1
[2023-10-12] MEDS: SODIUM CHLORIDE FOR INHALATION 3 ML VIAL.NEB IH ONE (12:09)
[2023-10-12 12:59] VITALS: BP 110/59; PULSE 61; TEMP 97.8
== END 2023-10-12 13:01 | disposition home or self-care (01) ==
LOC: JER 10:29
PROC: 3E0F7GC Introduction of Other Therapeutic Substance into Respiratory Tract, Via Natural or Artificial Opening (ICD-10-PCS; principal; 2023-10-12)
DX: J95.03 Malfunction of tracheostomy stoma (principal); R06.02 Shortness of breath
CPT/HCPCS: 99283-25

== ENCOUNTER 2023-12-30 19:59 | Emergency (ER) | payer OTHER, BC ==
[2023-12-30 20:35] VITALS: BMI 21.4
[2023-12-30] MEDS: LACTATED RINGERS SOLUTION 1000 ML INFUS.BAG IV ONE (21:03)
[2023-12-30] MEDS: SODIUM CHLORIDE FOR INHALATION 3 ML VIAL.NEB IH ONE (21:03)
[2023-12-30] MEDS: ACETAMINOPHEN 1000 MG/100 ML BAG IVPB ONE (23:49)
[2023-12-30] MEDS ORDERED: ACETAMINOPHEN INJECTION 100 ML IVPB ONE (23:52)
[2023-12-31 06:29] VITALS: BP 122/71; PULSE 64; RESP 18; TEMP 97.4
== END 2023-12-31 07:11 | disposition home or self-care (01) ==
LOC: JER 19:59
PROC: 3E033NZ Introduction of Analgesics, Hypnotics, Sedatives into Peripheral Vein, Percutaneous Approach (ICD-10-PCS; principal; 2023-12-30)
DX: R06.02 Shortness of breath (principal); R07.0 Pain in throat; R13.10 Dysphagia, unspecified
CPT/HCPCS: 93005; 93010; 96374; 99284-25; J0131